=== PATIENT | female | born 1960 | race Caucasian/White ===

== ENCOUNTER 2018-05-25 15:07 | Inpatient (IN) ==
[2018-05-25] MEDS ORDERED: 0.9 % SODIUM CHLORIDE 1,000 ML IV ONE ×3 (15:30→16:10)
--- NOTE | 2018-05-25 15:51 | XRay Report ---
HISTORY: Smoker with cough FINDINGS: There are thin linear opacities in the inferior segment lingula and laterally in the right lower lobe. The involvement in the lingula has improved since 05/21/18 and there has been no change in the right side. This may be a combination of scar and discoid atelectasis. The lungs are otherwise clear, without evidence of pneumonia, mass or emphysema. The heart size, mediastinum and chris are normal. IMPRESSION: Resolving discoid atelectasis in the lingula and stable thin band of scar or discoid atelectasis in the right lower lobe Interpreted and Authenticated by: Crescencio Cazares 05/25/18
[2018-05-25 15:53] LABS: Basophils # (Auto) 0 K/mcL (0.0-0.3); Basophils % (Auto) 0.1 % (0.0-2.0); Eosinophils # (Auto) 0 K/mcL (0.0-0.7); Eosinophils % (Auto) 0.8 % (0.0-7.0); Lymphocytes # (Auto) 0.6 K/mcL (1.5-4.8); Lymphocytes % (Auto) 14.7 % (15.5-49.0); Mean Cell Volume 93.1 fL (80.0-100.0); Mean Corpuscular HGB Conc 33.9 g/dL (31.0-36.0); Monocytes # (Auto) 0.4 K/mcL (0.1-0.9); Monocytes % (Auto) 8.4 % (1.0-12.0); Platelet Count 152 K/mcL (140-440); RBC 4.26 M/mcL (4.00-5.20); Red Cell Distribution Width 12.2 % (11.5-14.5)
[2018-05-25] MEDS ORDERED: ONDANSETRON 4 MG/2 ML VIAL IV ONE ×2 (15:53→16:58)
--- NOTE | 2018-05-25 16:10 | Emergency Department Note ---
Syncope HPI - General Chief Complaint: Syncope Stated Complaint: syncopal episode in Office, nausea/diarrhea Time Seen by Provider: 05/25/18 15:27 Source: patient, EMS Mode of arrival: EMS Limitations: no limitations - History of Present Illness HPI Narrative: 58-year-old nephrology patient of Dr. Steele Came in for syncope in her office. She was markedly orthostatic but claims that she was urinating okay. She is been sick for the last week with a fever diarrhea and a productive cough. Notes some nausea but no vomiting. Normal bowel movement today. She denies any blood in it but she said it may have been black but not tarry. Decreased a ppetite feeling with - Related Data Home Medications Medication Instructions Recorded Confirmed aspirin 81 mg tablet,delayed 81 mg PO QDAY 10/23/16 05/25/18 release calcium acetate 667 mg tablet 667 mg PO TID 10/23/16 05/25/18 cholecalciferol (vitamin D3) 1,000 2,000 unit PO QDAY tab 10/23/16 05/25/18 unit tablet duloxetine 60 mg capsule,delayed 60 mg PO QDAY 10/23/16 05/25/18 release hydrocodone 10 mg-acetaminophen 1 tab PO Q4H tab 10/23/16 05/25/18 325 mg tablet sitagliptin 100 mg tablet 100 mg PO QDAY tab 10/23/16 05/25/18 zolpidem 10 mg tablet 10 mg PO HS 10/23/16 05/25/18 Fish Oil [place] 3-6-9 2 cap PO QD-BID 10/24/16 05/25/18 multivitamin 1 each PO QDAY 10/24/16 05/25/18 Albuterol Sulfate Hfa 2 puff Q4 05/25/18 05/25/18 LORazepam [Ativan] 0.5 - 1 mg PO Q8HP PRN 05/25/18 05/25/18 benzonatate 100 mg capsule 100 mg PO TID 05/25/18 05/25/18 doxycycline hyclate 100 mg capsule 100 mg PO BID 05/25/18 05/25/18 glipizide ER 2.5 mg tablet, 2.5 mg PO QDAY #30 tab 05/25/18 05/25/18 extended release 24 hr rosuvastatin 40 mg tablet 40 mg PO QDAY #30 tab 05/25/18 05/25/18 Allergies Allergy/AdvReac Type Severity Reaction Status Date / Time azithromycin [From Zithromax] Allergy Unknown Unknown Verified 05/25/18 15:11 lodine Allergy Unknown Unknown Uncoded 05/25/18 14:29 Review of Systems All systems ED: reviewed and negative except as stated. Past Medical History - Past Medical History Attestation: Yes: The following information was validated with the patient. [facility] Narrative: Family History (Last Reviewed 05/25/18 @ 16:00 by Merry Ramirez MD) Mother Alcohol abuse Atrial fibrillation Hypertension, essential Heart disease Father Diabetes Arthritis Heart disease Hypertension, essential Medical History (Last Reviewed 05/25/18 @ 16:00 by Merry Ramirez MD) Post-menopausal (Chronic) Renal insufficiency (Chronic) Myocardial infarction, old (Chronic) Knee pain (Chronic) Hypertension, essential, benign (Chronic) Hyperlipidemia (Chronic) Foot pain (Chronic) Diabetes mellitus, type II (Chronic) Depression (Chronic) Bite from dog (Chronic) Past Surgical History (Last Reviewed 05/25/18 @ 16:00 by Merry Ramirez MD) History of left knee replacement (Chronic 11/10/12) History of surgery (Chronic ~02/2013) Medical history: Reports: hyperlipidemia, hypertension Surgical history ED: Reports: (x2), knee replacement - Social History smoking status: Current every day smoker Physical Exam Fatigued ill-appearing female resting. Normocephalic atraumatic. Conjunctive are clear sclerae white and anicteric. No nasal discharge or congestion. O ropharynx is with dry buccal mucosa. Posterior pharynx is clear. Neck is supple without lymphadenopathy or thyromegaly. No carotid bruit. Heart is regular rate rhythm no murmur appreciated. Lungs are clear to auscultation laterally without wheezes rales or rhonchi but she does have a productive cough if she takes a deep breath. Abdomen soft nontender nondistended except for the right upper and lower quadrants which is diffuse and mild. No pedal edema. +2 radial pulse. Alert oriented able to give me reasonable history Limitations: no limitations Course Vital Signs Temperature 97.6 F 05/25/18 15:08 Temperature 97.1 F 05/26/18 04:52 Pulse Rate 78 05/25/18 19:19 Respiratory Rate 18 05/26/18 04:52 Blood Pressure 103/61 05/26/18 04:52 Pulse Oximetry (%) 99 05/26/18 04:52 Syncope - Lab Data Lab results reviewed: Yes I reviewed the patient's lab results. Result diagrams: 05/26/18 03:30 05/26/18 03:30 Lab Results 05/25/18 05/25/18 05/25/18 Range/Units 15:20 15:20 15:20 WBC 4.2 L (4.5-11.0) K/mcL RBC 4.26 (4.00-5.20) M/mcL Hgb 13.5 (12.0-15.0) g/dL Hct 39.7 (36.0-48.0) % POC Hct 41.0 (36.0-48.0) % MCV 93.1 (80.0-100.0) fL MCH 31.6 (26.0-34.0) pg MCHC 33.9 (31.0-36.0) g/dL RDW 12.2 (11.5-14.5) % Plt Count 152 (140-440) K/mcL MPV 9.1 (7.4-10.4) fL Gran % 76.0 (38.0-78.0) % Lymph % (Auto) 14.7 L (15.5-49.0) % [place] % (Auto) 8.4 (1.0-12.0) % Eos % (Auto) 0.8 (0.0-7.0) % Baso % (Auto) 0.1 (0.0-2.0) % Gran # 3.2 (1.8-8.0) K/mcL Lymph # (Auto) 0.6 L (1.5-4.8) K/mcL [place] # (Auto) 0.4 (0.1-0.9) K/mcL Eos # (Auto) 0 (0.0-0.7) K/mcL Baso # (Auto) 0 (0.0-0.3) K/mcL VBG Lactic Acid (0.5-2.0) mmol/L POC Sodium 143 (133-145) mmol/L Sodium 143 (133-145) mmol/L POC Potassium 3.7 (3.3-5.1) mmol/L Potassium 3.8 (3.3-5.1) mmol/L POC Chloride 112 H (96-108) mmol/L Chloride 108 (96-108) mmol/L Carbon Dioxide 17 L (22-30) mmol/L POC Total CO2 17 L (22-30) mmol/L Anion Gap 18.0 H (8-16) POC BUN 88 H (6-20) mg/dl BUN 89 H (6-20) mg/dl Creatinine 7.1 H* (0.6-1.1) mg/dl POC Creatinine 7.7 H* (0.6-1.1) mg/dl GFR Calculation 6 Glucose 132 H (70-105) mg/dL POC Glucose 127 H (70-105) mg/dL Calcium 9.6 (8.6-10.4) mg/dl POC WB Ioniz Calcium 1.17 (1.16-1.32) mmol/L Magnesium (1.6-2.5) mg/dL Total Bilirubin 0.3 (0.0-1.0) mg/dL AST 23 (0-37) U/l ALT 28 (0-40) U/l Alkaline Phosphatase 76 (39-117) U/L NT-Pro-B Natriuret Pep (0-125) pg/ml Total Protein 7.5 (5.9-8.4) gm/dL Albumin 4.1 (3.2-5.2) gm/dL Globulin 3.4 (2.2-3.7) gm/dL Albumin/Globulin Ratio 1.2 (1.0-2.3) Procalcitonin 0.10 (<0.10) ng/mL Urine Color Urine Appearance Urine pH (5.0-9.0) Ur Specific [place] (1.000-1.035) Urine Protein (NEG) mg/dL Urine Glucose (UA) (NEG) mg/dL Urine Ketones (NEG) mg/dL Urine Occult Blood (<0.03) mg/dL Urine Nitrate (NEG) Urine Bilirubin (NEG) mg/dL Urine Urobilinogen (NEG) mg/dL Ur Leukocyte Esterase (NEG) /uL Urine RBC (0-1) /hpf Urine WBC (0-4) /hpf Ur Squamous Epith Cells (0-4) /hpf Amorphous Crystals (0) /hpf Urine Bacteria (0) /hpf Urine Mucus (0) /hpf Ur Culture Indicated? 05/25/18 05/25/18 05/25/18 Range/Units 15:33 15:34 17:38 WBC (4.5-11.0) K/mcL RBC (4.00-5.20) M/mcL Hgb (12.0-15.0) g/dL Hct (36.0-48.0) % POC Hct (36.0-48.0) % MCV (80.0-100.0) fL MCH (26.0-34.0) pg MCHC (31.0-36.0) g/dL RDW (11.5-14.5) % Plt Count (140-440) K/mcL MPV (7.4-10.4) fL Gran % (38.0-78.0) % Lymph % (Auto) (15.5-49.0) % [place] % (Auto) (1.0-12.0) % Eos % (Auto) (0.0-7.0) % Baso % (Auto) (0.0-2.0) % Gran # (1.8-8.0) K/mcL Lymph # (Auto) (1.5-4.8) K/mcL [place] # (Auto) (0.1-0.9) K/mcL Eos # (Auto) (0.0-0.7) K/mcL Baso # (Auto) (0.0-0.3) K/mcL VBG Lactic Acid 1.1 (0.5-2.0) mmol/L POC Sodium (133-145) mmol/L Sodium (133-145) mmol/L POC Potassium (3.3-5.1) mmol/L Potassium (3.3-5.1) mmol/L POC Chloride (96-108) mmol/L Chloride (96-108) mmol/L Carbon Dioxide (22-30) mmol/L POC Total CO2 (22-30) mmol/L Anion Gap (8-16) POC BUN (6-20) mg/dl BUN (6-20) mg/dl Creatinine (0.6-1.1) mg/dl POC Creatinine (0.6-1.1) mg/dl GFR Calculation Glucose (70-105) mg/dL POC Glucose (70-105) mg/dL Calcium (8.6-10.4) mg/dl POC WB Ioniz Calcium (1.16-1.32) mmol/L Magnesium 2.3 (1.6-2.5) mg/dL Total Bilirubin (0.0-1.0) mg/dL AST (0-37) U/l ALT (0-40) U/l Alkaline Phosphatase (39-117) U/L NT-Pro-B Natriuret Pep 783.1 H (0-125) pg/ml Total Protein (5.9-8.4) gm/dL Albumin (3.2-5.2) gm/dL Globulin (2.2-3.7) gm/dL Albumin/Globulin Ratio (1.0-2.3) Procalcitonin (<0.10) ng/mL Urine Color Straw Urine Appearance Clear Urine pH 6.0 (5.0-9.0) Ur Specific [place] 1.011 (1.000-1.035) Urine Protein 100 A (NEG) mg/dL Urine Glucose (UA) Negative (NEG) mg/dL Urine Ketones Neg (NEG) mg/dL Urine Occult Blood 0.2 A (<0.03) mg/dL Urine Nitrate Neg (NEG) Urine Bilirubin Neg (NEG) mg/dL Urine Urobilinogen Neg (NEG) mg/dL Ur Leukocyte Esterase Neg (NEG) /uL Urine RBC 5 H (0-1) /hpf Urine WBC 1 (0-4) /hpf Ur Squamous Epith Cells < 1 (0-4) /hpf Amorphous Crystals Few A (0) /hpf Urine Bacteria 0 (0) /hpf Urine Mucus Few (0) /hpf Ur Culture Indicated? No ABG shows pH 7.24 PCO2 29 PO2 66 - Radiology Data Radiology results reviewed: Yes I reviewed the patient's radiology results. Chest x-ray shows no acute findings - EKG Data EKG attestation: Yes I reviewed and interpreted this EKG. EKG results narrative: EKG shows a Q wave in 2 3 aVF as well as V4 to V6 sinus rhythm with a rate of 69 Disposition Pt seen by ENGINEER/PA only: No Clinical Impression: Metabolic acidosis, Syncope due to orthostatic hypotension Acute kidney failure Qualifiers: Acute renal failure type: unspecified Qualified Code(s): N17.9 - Acute kidney failure, unspecified Summary: Patient was initially brought over to me by Dr. Ramirez and she actually gave me her labs from last week which showed a significant increase in her creatinine. She expressed her concerns about the patient's orthostatics which we again confirmed show significant decreased blood pressure with standing. Patient appears very ill, in acute kidney failure Laboratory testing acute kidney failure with metabolic acidosis, symptomatic with syncopal episode. She will require hospital admission Of incidental note is that she quit smoking 1 week ago I discussed the case with Dr. Oliva the hospitalist as well as Dr. Ramirez the form builder. Dr. Oliva will admit the patient for further care and evaluation in the hospital and Dr. Ramirez will consult. Disposition: Xfer As Inpt ([facility]) Condition: Fair
[2018-05-25 16:16] LABS: proBNP 783.1 pg/ml (0-125)
[2018-05-25] MEDS ORDERED: SODIUM BICARBONATE 50 MEQ/50 ML VIAL IV ONE (16:17)
[2018-05-25 16:21] LABS: ALT/SGPT 28 U/l (0-40); Albumin 4.1 gm/dL (3.2-5.2); Albumin/Globulin Ratio 1.2 (1.0-2.3); Alkaline Phosphatase 76 U/L (39-117); Blood Urea Nitrogen 89 mg/dl (6-20)
--- NOTE | 2018-05-25 17:02 | Internal Med History&Physical ---
Medical - H&P: [facility] Patient information: Note initiated : 05/25/18 at 5:01 pm Service Date, if different from initiated Date: [] Patient: Verito Alcantar a 58 y/o F admitted on for syncopal episode in Office, nausea/diarrhea. Chief Complaint: [] Chief complaint: weakness, syncope History of present illness: Ms. Alcantar is a 58 year old F with a history of chronic kidney disease who had a syncopal episode at nephrology clinic today and was subsequently referred to the ER. Patient over the last 10 days has been experiencing profuse diarrhea along with weakness. She denies associated abdominal pain fever, mucus or blood. However over the last 1 week she has lost over 10 pounds. She feels extremely dehydrated. She also developed upper respiratory symptoms around 5 days ago for which she was evaluated at PCP office and was prescribed doxycycline for 10 days. She endorses to extreme fatigue, malaise and weakness along with nausea that has progressed to the point she is unable to function prompting her to follow-up with nephrology clinic where she experienced syncopal episode. Notably patient had a history of chronic kidney disease with a recent creatinine of over 5 how ever repeat creatinine today in the ER was over 7 with a BUN 89. Nephrology was consulted and patient will undergo hemodialysis after HD catheter placement in 24 hours. Hospitalist service was consulted for admission At the time of evaluation patient is accompanied with her daughter and . She endorses to history as above. She denies NSAID use, changes in medication. She denies sick contacts. Review of systems 10 point review of system was performed and is negative except as discussed above Medical - H&P: [facility] Medical history: Post-menopausal (Chronic) Renal insufficiency (Chronic) Myocardial infarction, old (Chronic) age 41 Knee pain (Chronic) chronic, right Hypertension, essential, benign (Chronic) Hyperlipidemia (Chronic) Foot pain (Chronic) left Diabetes mellitus, type II (Chronic) Depression (Chronic) Bite from dog (Chronic) Surgical History History of left knee replacement (Chronic 11/10/12) History of surgery (Chronic ~02/2013) Stent placement Family History Mother Alcohol abuse Atrial fibrillation Hypertension, essential Heart disease Father , age 82 Diabetes Arthritis Heart disease Hypertension, essential Social History marital status: 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 smoking status: Current every day smoker 2 pack a day alcohol intake frequency: does not drink Medical - H&P: Meds Home Medications Medication Instructions Recorded Confirmed Type aspirin 81 mg tablet,delayed 81 mg PO QDAY 10/23/16 05/25/18 History release calcium acetate 667 mg tablet 667 mg PO TID 10/23/16 05/25/18 History cholecalciferol (vitamin D3) 1,000 2,000 unit PO QDAY tab 10/23/16 05/25/18 History unit tablet duloxetine 60 mg capsule,delayed 60 mg PO QDAY 10/23/16 05/25/18 History release hydrocodone 10 mg-acetaminophen 1 tab PO Q4H tab 10/23/16 05/25/18 History 325 mg tablet sitagliptin 100 mg tablet 100 mg PO QDAY tab 10/23/16 05/25/18 History zolpidem 10 mg tablet 10 mg PO HS 10/23/16 05/25/18 History Fish Oil [place] 3-6-9 2 cap PO QD-BID 10/24/16 05/25/18 History multivitamin 1 each PO QDAY 10/24/16 05/25/18 History Albuterol Sulfate Hfa 2 puff Q4 05/25/18 05/25/18 History LORazepam [Ativan] 0.5 - 1 mg PO Q8HP PRN 05/25/18 05/25/18 History benzonatate 100 mg capsule 100 mg PO TID 05/25/18 05/25/18 History doxycycline hyclate 100 mg capsule 100 mg PO BID 05/25/18 05/25/18 History glipizide ER 2.5 mg tablet, 2.5 mg PO QDAY #30 tab 05/25/18 05/25/18 History extended release 24 hr rosuvastatin 40 mg tablet 40 mg PO QDAY #30 tab 05/25/18 05/25/18 History Allergies Allergy/AdvReac Type Severity Reaction Status Date / Time azithromycin [From Zithromax] Allergy Unknown Unknown Verified 05/25/18 15:11 lodine Allergy Unknown Unknown Uncoded 05/25/18 14:29 Medical - H&P: Exam - Constitutional Vitals: Temp Pulse Resp BP Pulse Ox 97.6 F 72 13 125/78 99 05/25/18 15:08 05/25/18 16:41 05/25/18 16:41 05/25/18 16:41 05/25/18 16:41 General appearance: no acute distress Exam: Anxious and fatigued Eye movement symmetrical Oral cavity dry Head normocephalic Neck no lymphadenopathy S1 and S2 irregular rhythm Diminished breath sounds bases with symmetrical breath sounds Abdomen soft nontender Lower extremity no cyanosis clubbing or joint swelling or erythema Skin no suspicious lesion Psych anxious but alert and cooperative without hallucination Neuro nonfocal Medical - H&P: Reslt - Labs CBC & Chem 7: 05/26/18 03:30 05/26/18 03:30 Labs: Short CBC 05/25/18 Range/Units 15:20 WBC 4.2 L (4.5-11.0) K/mcL Hgb 13.5 (12.0-15.0) g/dL Hct 39.7 (36.0-48.0) % Plt Count 152 (140-440) K/mcL BMP 05/25/18 15:20 Sodium 143 Potassium 3.8 Chloride 108 Carbon Dioxide 17 L BUN 89 H Creatinine 7.1 H* Glucose 132 H Calcium 9.6 Liver Function 05/25/18 Range/Units 15:20 Total Bilirubin 0.3 (0.0-1.0) mg/dL AST 23 (0-37) U/l ALT 28 (0-40) U/l Alkaline Phosphatase 76 (39-117) U/L Albumin 4.1 (3.2-5.2) gm/dL Medical - H&P: A/P (1) ESRD (end stage renal disease) Current visit: Yes Status: Acute * End-stage renal disease- within managed per nephrology. Patient undergoing hemodialysis * Diarrhea with volume depletion-crystalloids * Syncope likely secondary to volume depletion, start telemetry monitoring to rule out arrhythmia, echocardiogram to rule out cardiac valvular etiology. * History of hypertension-medications will be as per nephrology * DM type II continue basal prandial insulin, hold glipizide/sitagliptin. Start CCD * Hyperlipidemia on statin * Full code * Prophylaxis heparin Plan * Nephrology consult * Crystalloids * Telemetry monitoring/echocardiogram * Inpatient admission light of renal failure requiring hemodialysis
[2018-05-25 18:06] LABS: Appearance,Urine CLEAR; Bacteria,Urine 0 /hpf (0); Bilirubin,Urine NEG (NEG); Color,Urine STRAW; Glucose,Urine (UA) NEGATIVE (NEG); Leukocyte Esterase,Urine NEG /uL (NEG); Mucus,Urine FEW /hpf (0); Protein,Urine 100 mg/dL (NEG); Specific Gravity,Urine 1.011 (1.000-1.035); Urine Amorphous Crystals FEW /hpf (0); Urine Blood 0.2 mg/dL (<0.03); Urine RBC 5 /hpf (0-1); Urine Squamous Epithelial Cell < 1 /hpf (0-4); Urine WBC 1 /hpf (0-4); Urobilinogen,Urine NEG (NEG)
[2018-05-25] MEDS ORDERED: ACETAMINOPHEN 325 MG TABLET PO PRN (19:10)
--- NOTE | 2018-05-25 19:53 | Nephrology Consult Note ---
History of Present Illness - Reason for Consult Patient information: Note initiated : 05/25/18 at 7:50 pm Service Date, if different from initiated Date: [] Patient: Verito Alcantar a 58 y/o F admitted on 05/25/[address] for [address] episode [address] Wiley, nausea/diarrhea. Chief Complaint: [] - History of Present Illness Ms Alcantar is a 58 y/o pleasant white female with PMH of HTN, DM type 2, CAD s/p angioplasty, CKD, dyslipidemia and other medical issues who is here for follow up she has h/o proteinuric CKD in the setting of HTN, DM type 2 and chronic NSAIDS use lst to follow up almost for a year requested to come back by PCP given current labs showing s.creatinine of 5.2, egfr of 8.0ml/min per CKD EPI equation patient could nto provide much history while in the clinic she was sick/lightheaded, nauseous we tried to take her to ER but she had pre syncopal episode and fell down on floor, denied any trauma/injury/pain, EMS called and took her to ER Patient states she started having diarrhea and vomiting 10 days ago,she also had acute bronchitis then, she saw her pcp on 05/21 and was prescribed doxycycline, she states her diarrhea resolved 5 days ago but she has had persistent nausea, poor appetite and has been feeling lightheaded today, she did not go to work today She denies taking any other meds she denies LE edema, SOB, CP she denies any urinary symptoms Patient was started on IVF in the ER, her work up showed further worsening of her renal function with s.creatinine upto 7.7 and BUN of 89, she was acidotic as well with ph of 7.26 on ABG Review of Systems All systems PM: reviewed and no additional remarkable complaints except as stated ( IN hpi) Past History Past medical history: CKD stage V, s.creatinine was 3.6-3.8 a year ago secondary hyperparathyroidism HTN DM type 2 CAD s/p stent placement dyslipidemia poor compliance to follow up h/o chronic pain and has used NSAIDS for this in the past Past surgical history: h/o stent placement h/o left knee replacement Past family history: no family history of renal disease Alcohol abuse Mother Atrial fibrillation Mother Hypertension, essential Mother Heart disease Mother Father Diabetes Father Arthritis Father Heart disease Father Hypertension, essential Father Past social history: works at [employer] smokes everyday, last smoke a week ago no h/o alcohol abuse Medications and Allergies Home Medications Medication Instructions Recorded Confirmed Type aspirin 81 mg tablet,delayed 81 mg PO QDAY 10/23/16 05/25/18 History release calcium acetate 667 mg tablet 667 mg PO TID 10/23/16 05/25/18 History cholecalciferol (vitamin D3) 1,000 1,000 unit PO QDAY tab 10/23/16 05/25/18 History unit tablet duloxetine 60 mg capsule,delayed 60 mg PO QDAY 10/23/16 05/25/18 History release hydrocodone 10 mg-acetaminophen 1 tab PO Q4H tab 10/23/16 05/25/18 History 325 mg tablet sitagliptin 100 mg tablet 50 mg PO QDAY tab 10/23/16 05/25/18 History zolpidem 10 mg tablet 10 mg PO HS 10/23/16 05/25/18 History Fish Oil [place] 3-6-9 2 cap PO QDAY 10/24/16 05/25/18 History multivitamin 1 each PO QDAY 10/24/16 05/25/18 History amlodipine 5 mg tablet 5 mg PO QDAY #30 tab 01/13/17 05/25/18 Rx benzonatate 100 mg capsule 100 mg PO TID 05/25/18 05/25/18 History doxycycline hyclate 100 mg capsule 100 mg PO BID 05/25/18 05/25/18 History glipizide ER 2.5 mg tablet, 2.5 mg PO QDAY #30 tab 05/25/18 05/25/18 History extended release 24 hr rosuvastatin 40 mg tablet 40 mg PO QDAY #30 tab 05/25/18 05/25/18 History Allergies Allergy/AdvReac Type Severity Reaction Status Date / Time azithromycin [From Zithromax] Allergy Unknown Unknown Verified 05/25/18 15:11 lodine Allergy Unknown Unknown Uncoded 05/25/18 14:29 Exam - Vital Signs Vital signs: Temp Pulse Resp BP Pulse Ox 97.6 F 78 18 105/75 97 05/25/18 19:19 05/25/18 19:19 05/25/18 19:19 05/25/18 19:19 05/25/18 19:19 - General Appearance General appearance: appears started age, chronically ill, frail EENT: mucous membranes moist Neck: no JVD Respiratory: wheezing (mainly on right side ) Cardiology: no rub, no edema, normal S1, normal S2 Gastrointestinal: no tenderness, no guarding Neurologic: alert and oriented x3 Musculoskeletal: no erythema, no cyanosis Psychiatric: mood/affect appropriate Results - Lab Results 05/25/18 15:20 05/25/18 15:20 Most recent lab results Calcium 9.6 mg/dl (8.6-10.4) 05/25/18 15:20 Magnesium 2.3 mg/dL (1.6-2.5) 05/25/18 15:34 Assessment and Plan - Narrative A/P Narrative: Patient with acute on chronic renal failure vs progressive decline in renal function, s.creatinine a year ago was 3.6-3.8, on 05/21/18 was 5.2 and today is 7.1 she has persistent nausea and poor appetite, she has lost 20 lbs since last seen she has persistent metabolic acidosis no hyperkalemia no anemia no s/o fluid excess will continue with IV gentle hydration will start on oral sodium bicarb, she received an amp of bicarb in the ER will hold amlodipine no emergent need for dialysis ,if symptoms fail to resolve however she will need to initiate HD, discussed with the patient and she is willing to initiate HD if needed will have IR place TCC, discussed with Dr Mckeon please dose meds to egfr avoid nephrotoxic medications will follow along
[2018-05-25] MEDS: PROMETHAZINE 25 MG/ML VIAL IV PRN (20:34)
[2018-05-25] MEDS: LACTATED RINGERS 1,000 ML IV SCH (20:34)
[2018-05-25] MEDS: ONDANSETRON 4 MG/2 ML VIAL IV PRN (22:37)
[2018-05-25] MEDS: SODIUM BICARBONATE 650 MG TABLET PO SCH (22:38)
[2018-05-25] MEDS: HEPARIN 5,000 UNIT/ML VIAL SQ SCH (22:38)
[2018-05-25] MEDS: DOCUSATE SODIUM 100 MG CAPSULE PO SCH (22:39)
[2018-05-25] MEDS: NICOTINE 21 MG PATCH TOPICAL SCH (22:39)
[2018-05-25] MEDS: SENNOSIDES/DOCUSATE SODIUM 1 TAB TABLET PO SCH (22:40)
[2018-05-25] MEDS: 0.9 % SODIUM CHLORIDE 10 ML SYRINGE IV SCH (22:40)
[2018-05-26] MEDS ORDERED: ZOLPIDEM 5 MG TABLET ONE (00:14)
[2018-05-26] MEDS: ZOLPIDEM 5 MG TABLET PO PRN ×2 (00:17→21:32)
[2018-05-26] MEDS: PROMETHAZINE 25 MG/ML VIAL IV PRN ×2 (01:56→09:11)
[2018-05-26 06:39] LABS: Mean Cell Volume 95.3 fL (80.0-100.0); Mean Corpuscular HGB Conc 33.5 g/dL (31.0-36.0); Platelet Count 142 K/mcL (140-440); RBC 3.74 M/mcL (4.00-5.20); Red Cell Distribution Width 12.5 % (11.5-14.5)
[2018-05-26 07:25] LABS: ALT/SGPT 24 U/l (0-40); Albumin 3.5 gm/dL (3.2-5.2); Albumin/Globulin Ratio 1.3 (1.0-2.3); Alkaline Phosphatase 62 U/L (39-117); Bilirubin,Direct < 0.2 mg/dL (0.0-0.3); Blood Urea Nitrogen 80 mg/dl (6-20); Gamma Glutamyl Transpeptidase 14 U/L (5-36); Uric Acid 8.1 mg/dL (2.5-8.0)
[2018-05-26] MEDS: 0.9 % SODIUM CHLORIDE 10 ML SYRINGE IV SCH ×3 (07:32→21:17)
[2018-05-26] MEDS: MULTIVIT,THER IRON,CA,FA & MIN 1 TABLET PO SCH (08:31)
[2018-05-26] MEDS: DOCUSATE SODIUM 100 MG CAPSULE PO SCH ×2 (08:31→21:33)
[2018-05-26] MEDS: SODIUM BICARBONATE 650 MG TABLET PO SCH (08:31)
[2018-05-26] MEDS: HEPARIN 5,000 UNIT/ML VIAL SQ SCH ×2 (08:32→21:18)
[2018-05-26] MEDS: LACTATED RINGERS 1,000 ML IV SCH (09:07)
[2018-05-26] MEDS: NICOTINE 21 MG PATCH TOPICAL SCH (09:10)
[2018-05-26 09:15] LABS: Eosinophils % (Manual) 1 % (0-7); Lymphocytes % 29 % (15-49); Monocytes % (Manual) 10 % (1-12); Platelet Estimate DECREASED (NORMAL); RBC Morphology NORMAL (NORMAL); Segmented Neutrophils % 60 % (38-78)
[2018-05-26] MEDS ORDERED: DEXTROSE 31 GM ORAL.SUSP PO PRN (09:44)
[2018-05-26] MEDS ORDERED: DEXTROSE 50% 50 ML VIAL IV PRN (09:44)
--- NOTE | 2018-05-26 09:44 | Internal Med Progress Note ---
Medical - PN: Subj Patient information: Note initiated : 05/26/18 at 9:42 am Service Date, if different from initiated Date: [] Patient: Verito Alcantar a 58 y/o F admitted on 05/25/18 for syncopal episode in Dr. Wiley, nausea/diarrhea. Chief Complaint: [] Interval history: Ms. Alcantar is a 58 year old F with a history of chronic kidney disease who had a syncopal episode at nephrology clinic today and was subsequently referred to the ER. Patient over the last 10 days has been experiencing profuse diarrhea along with weakness. She denies associated abdominal pain fever, mucus or blood. However over the last 1 week she has lost over 10 pounds. She feels extremely dehydrated. She also developed upper respiratory symptoms around 5 days ago for which she was evaluated at PCP office and was prescribed doxycycline for 10 days. She endorses to extreme fatigue, malaise and weakness along with nausea that has progressed to the point she is unable to function prompting her to follow-up with nephrology clinic where she experienced syncopal episode. Notably patient had a history of chronic kidney disease with a recent creatinine of over 5 however repeat creatinine today in the ER was over 7 with a BUN 89. Nephrology was consulted and patient will undergo hemodialysis after HD catheter placement in 24 hours. Hospitalist service was consulted for admission At the time of evaluation patient is accompanied with her daughter and . She endorses to history as above. She denies NSAID use, changes in medication. She denies sick contacts. 3/-patient doing well. Creatinine down from 7.1-6.5. Hemodialysis catheter placement today at [place]. Nephrology on board. No other concerns per nursing staff. No overnight events except for persistent nausea. - Constitutional Vitals: Vital Signs Temp Pulse Resp BP Pulse Ox 97.1 F 78 18 103/61 99 05/26/18 04:52 05/25/18 19:19 05/26/18 04:52 05/26/18 04:52 05/26/18 04:52 Period Temp Pulse Resp BP Sys/Morales Pulse Ox Last 24 Hr 97.1 F-98.1 F 68-78 13-26 94-131/57-87 94-100 Intake and Output 05/25/18 05/26/18 05/26/18 21:59 05:59 13:59 Intake Total 1885 1000 Output Total 400 1000 Balance 1485 -1000 1000 Weight 160 lb 14.4 oz Intake & Output: Intake & Output 05/25/18 05/26/18 05/26/18 21:59 05:59 13:59 Intake Total 1885 1000 Output Total 400 1000 Balance 1485 -1000 1000 Weight 160 lb 14.4 oz Intake: IV 1165 1000 Sodium Chloride 0.9% 1,000 ml @ 1165 Wide Open IV BOLUS ONE Rx#: [id number] Lactated Ringers 1,000 ml @ 75 1000 mls/hr IV .[id number] SUNDAY Rx#: [id number] Oral 720 Output: Void Amount 400 1000 Other: Meal Dinner Percent of Meal Consumed 25% Feeding Ability Independent # Voids 1 General appearance: cooperative, no acute distress Exam: Alert oriented nonlabored breathing No anxiety Nondistended abdomen Medical - PN: Obj Da - Labs CBC & Chem 7: 05/26/18 03:30 05/26/18 03:30 Labs: Abnormal Lab Results 05/26/18 05/26/18 05/25/18 03:30 03:30 17:38 WBC 3.3 L RBC 3.74 L Hgb 11.9 L Hct 35.6 L Lymph % (Auto) Lymph # (Auto) POC Chloride Chloride 109 H Carbon Dioxide 20 L POC Total CO2 Anion Gap POC BUN BUN 80 H Creatinine 6.5 H* POC Creatinine Glucose POC Glucose Uric Acid 8.1 H Calcium 8.5 L Phosphorus 4.8 H NT-Pro-B Natriuret Pep Triglycerides 381 H Urine Protein 100 A Urine Occult Blood 0.2 A Urine RBC 5 H Amorphous Crystals Few A 05/25/18 05/25/18 05/25/18 15:34 15:20 15:20 WBC 4.2 L RBC Hgb Hct Lymph % (Auto) 14.7 L Lymph # (Auto) 0.6 L POC Chloride 112 H Chloride Carbon Dioxide 17 L POC Total CO2 17 L Anion Gap 18.0 H POC BUN 88 H BUN 89 H Creatinine 7.1 H* POC Creatinine 7.7 H* Glucose 132 H POC Glucose 127 H Uric Acid Calcium Phosphorus NT-Pro-B Natriuret Pep 783.1 H Triglycerides Urine Protein Urine Occult Blood Urine RBC Amorphous Crystals Meds: Medications Acetaminophen (Tylenol) 650 mg PO Q4-6HP PRN PRN Reason: PAIN/FEVER > 101 Docusate Sodium (Colace) 100 mg PO BID [facility] Last Admin: 05/26/18 08:31 Dose: Not Given Documented by: Heparin Sodium (Porcine) (Heparin) 5,000 unit SQ Q12 [facility] Last Admin: 05/26/18 08:32 Dose: Not Given Documented by: Acetaminophen (Ofirmev) 1,000 mg in 100 mls @ 200 mls/hr IV Q6HP PRN PRN Reason: PAIN/FEVER > 101 Lactated Ringer's (Lactated Ringers) 1,000 mls @ 75 mls/hr IV .[id number] [facility] Last Admin: 05/26/18 09:07 Dose: 75 mls/hr Documented by: Iron Carb/Multivit/[place]/Folic Acid (Multivitamin W/Minerals) 1 tab PO DAILY [facility] Last Admin: 05/26/18 08:31 Dose: Not Given Documented by: Nicotine (Nicoderm) 21 mg TOPICAL DAILY@1000 [facility] Last Admin: 05/26/18 09:10 Dose: 21 mg Documented by: Ondansetron HCl (Zofran) 4 mg IV Q4-6HP PRN PRN Reason: Nausea And Vomiting Last Admin: 05/25/18 22:37 Dose: 4 mg Documented by: Pneumococcal Polyvalent Vaccine (Pneumovax 23) 0.5 ml IM .ONCE ONE Stop: 05/27/18 10:01 Promethazine HCl (Phenergan) 6.25 mg IV Q4HP PRN PRN Reason: Nausea Last Admin: 05/26/18 09:11 Dose: 6.25 mg Documented by: Senna/Docusate Sodium (Senna Plus Tablet) 1 tab PO HS [facility] Last Admin: 05/25/18 22:40 Dose: Not Given Documented by: Sodium Bicarbonate (Sodium Bicarbonate) 1,300 mg PO BID [facility] Last Admin: 05/26/18 08:31 Dose: Not Given Documented by: Sodium Chloride (Saline Flush) 10 ml IV Q8 [facility] Last Admin: 05/26/18 07:32 Dose: Not Given Documented by: Zolpidem Tartrate (Ambien) 5 mg PO HSP PRN PRN Reason: Insomnia Last Admin: 05/26/18 00:17 Dose: 5 mg Documented by: Medical - PN: A/P - Time Spent With Patient Total time spent is greater than 50% in coordination of care (as documented) at patient's floor/unit and/or counseling patient: 15 - 24 minutes (1) ESRD (end stage renal disease) Status: Acute Assessment and plan: * End-stage renal disease- within managed per nephrology. Patient undergoing hemodialysis * Diarrhea with volume depletion-crystalloids * Syncope likely secondary to volume depletion, start telemetry monitoring to rule out arrhythmia, echocardiogram to rule out cardiac valvular etiology. * History of hypertension-medications will be as per nephrology * DM type II continue basal prandial insulin, hold glipizide/sitagliptin. Start CCD * Hyperlipidemia on statin * Full code * Prophylaxis heparin Plan * Hemodialysis catheter placement today * Await echocardiogram * Continue fluid electrolyte management per nephrology * pre-existing medical condition management Current Visit: Yes Medical - PN: Qual - VTE Deep Vein Thrombosis/Pulmonary Embolism Present on Admission: No
[2018-05-26] MEDS: INSULIN LISPRO 1 UNIT/0.01 ML UNIT SQ SCH ×4 (09:48→20:14)
--- NOTE | 2018-05-26 16:26 | Nephrology Progress Note ---
Subjective Patient information: Note initiated : 05/26/18 at 4:24 pm Service Date, if different from initiated Date: [] Patient: Verito Alcantar 58 y/o F admitted on 05/25/18 for syncopal episode in Dr. Wiley, nausea/diarrhea. Chief Complaint: [] Principal diagnosis: uremia Interval history: Patient has persistent nausea and is on phenergan for this She his non oliguric, no major improvement in renal function despite aiv HYDRATION No SOB, CP no edema denies dizziness, states walked this am no other concerns Patient has h/o CKD stage V, last s.creatinine a year ago 3.6-4.0, patient then lost to follow up, did not see PCP either Pertinent ROS: ABOVE Objective - Vital Signs Vital signs: Vital Signs Temp Pulse Pulse Resp BP BP BP 05/26/18 16:00 98.1 F 18 86/51 05/26/18 15:15 97.0 F 18 111/67 05/26/18 11:00 97.0 F 66 18 104/52 05/26/18 08:00 97.2 F 66 18 98/61 05/26/18 04:52 97.1 F 18 103/61 05/25/18 23:45 97.1 F 18 122/67 05/25/18 19:19 97.6 F 78 18 105/75 05/25/18 19:03 98.1 F 18 114/61 05/25/18 18:41 78 18 105/75 05/25/18 18:21 73 16 118/72 05/25/18 18:01 71 20 110/57 05/25/18 17:43 68 18 116/75 05/25/18 17:21 71 17 105/86 05/25/18 17:01 69 18 112/63 05/25/18 16:41 72 13 125/78 05/25/18 16:33 69 19 118/72 Pulse Ox 05/26/18 16:00 93 05/26/18 15:15 92 05/26/18 11:00 95 05/26/18 08:00 100 05/26/18 04:52 99 05/25/18 23:45 95 05/25/18 19:19 97 05/25/18 19:03 97 05/25/18 18:41 97 05/25/18 18:21 97 05/25/18 18:01 99 05/25/18 17:43 94 05/25/18 17:21 95 05/25/18 17:01 100 05/25/18 16:41 99 05/25/18 16:33 99 Intake and Output 05/26/18 05/26/18 05/26/18 05:59 13:59 21:59 Intake Total 1148 0 Output Total 1000 1000 Balance -1000 148 0 Intake: IV 1148 0 Lactated Ringers 1,000 ml @ 75 1148 0 mls/hr IV .[id number] SUNDAY Rx#: [id number] Output: Void Amount 1000 1000 Other: Urine Appearance Clear Urine Color Bright Yellow Urine Odor Normal Weight 160 lb 14.4 oz Patient Weight 05/27/18 05:59 Weight 160 lb 14.4 oz Intake & Output: Intake & Output 05/26/18 05/26/18 05/26/18 05:59 13:59 21:59 Intake Total 1148 0 Output Total 1000 1000 Balance -1000 148 0 Weight 160 lb 14.4 oz Intake: IV 1148 0 Lactated Ringers 1,000 ml @ 75 1148 0 mls/hr IV .[id number] SUNDAY Rx#: [id number] Output: Void Amount 1000 1000 Other: Urine Appearance Clear Urine Color Bright Yellow Urine Odor Normal - General Appearance General appearance: appears started age, chronically ill, frail EENT: mucous membranes moist Neck: no JVD Respiratory: wheezing Cardiology: no rub, no edema, normal S1, normal S2 Gastrointestinal: no tenderness, no guarding Integumentary: warm and dry Neurologic: alert and oriented x3 Musculoskeletal: no erythema, no clubbing Psychiatric: mood/affect appropriate - Lab 05/26/18 03:30 05/26/18 03:30 Most recent lab results Calcium 8.5 mg/dl (8.6-10.4) L 05/26/18 03:30 Phosphorus 4.8 mg/dL (2.7-4.5) H 05/26/18 03:30 Magnesium 2.1 mg/dL (1.6-2.5) 05/26/18 03:30 Assessment and Plan (1) Acute on chronic renal failure Status: Acute (2) Metabolic acidosis Status: Acute (3) Secondary hyperparathyroidism (of renal origin) Status: Acute - Narrative A/P Narrative: Patient with acute on chronic renal failure vs progressive decline in renal function, s.creatinine a year ago was 3.6-4.0 a year ago, on 05/21/18 was 5.2 and now 7.1-6.5, egfr 6 unchanged despite IV hydration she has persistent nausea and poor appetite, she has lost 20 lbs since last seen she has persistent metabolic acidosis no hyperkalemia mild anemia albumin down to 3.5 she does have flapping tremors no s/o fluid excess will stop IVF, she is able to tolerate po will hold sodium bicarbonate will initiate dialysis, patient understands that she was getting closer to dialysis even a year ago, she has h/o very poor compliance with follow up and she will be at risk of sudden in case her renal function fails to improve significantly HD today for 2 hrs using revaclear 300 dialyser, 3K/2.5CA DIALYSATE, no UF removal and qb 200ml/min please dose meds to egfr copd/ACUTE BRONCHITIS: consider starting bronchodilators given persistent wheezing HTN: will hold off on amlodipine for now DM type 2: if januvia is resumed will need to be dosed per dialysis
[2018-05-26] MEDS: SEVELAMER 800 MG TABLET PO SCH (17:21)
[2018-05-26] MEDS: ACETAMINOPHEN 1,000 MG/100 ML BOTTLE IV PRN (19:54)
[2018-05-26] MEDS ORDERED: fentaNYL 100 MCG/2 ML VIAL IV ONE (21:11)
[2018-05-26] MEDS: fentaNYL 100 MCG/2 ML VIAL IV PRN (21:18)
[2018-05-26] MEDS: SENNOSIDES/DOCUSATE SODIUM 1 TAB TABLET PO SCH (21:33)
[2018-05-27] MEDS: ACETAMINOPHEN 1,000 MG/100 ML BOTTLE IV PRN ×2 (05:46→16:00)
[2018-05-27] MEDS: 0.9 % SODIUM CHLORIDE 10 ML SYRINGE IV SCH ×3 (05:47→21:56)
[2018-05-27 07:04] LABS: Mean Cell Volume 95.7 fL (80.0-100.0); Mean Corpuscular HGB Conc 33.5 g/dL (31.0-36.0); Platelet Count 157 K/mcL (140-440); RBC 3.87 M/mcL (4.00-5.20); Red Cell Distribution Width 12.9 % (11.5-14.5)
[2018-05-27 07:58] LABS: ALT/SGPT 23 U/l (0-40); Albumin 3.5 gm/dL (3.2-5.2); Albumin/Globulin Ratio 1.2 (1.0-2.3); Alkaline Phosphatase 72 U/L (39-117); Bilirubin,Direct < 0.2 mg/dL (0.0-0.3); Blood Urea Nitrogen 50 mg/dl (6-20); Gamma Glutamyl Transpeptidase 16 U/L (5-36); Uric Acid 5.3 mg/dL (2.5-8.0)
[2018-05-27] MEDS: INSULIN LISPRO 1 UNIT/0.01 ML UNIT SQ SCH ×4 (08:00→20:16)
[2018-05-27] MEDS: SEVELAMER 800 MG TABLET PO SCH ×3 (08:12→17:13)
--- NOTE | 2018-05-27 08:19 | Internal Med Progress Note ---
Medical - PN: Subj Patient information: Note initiated : 05/27/18 at 8:14 am Service Date, if different from initiated Date: [] Patient: Verito Alcantar a 58 y/o F admitted on 05/25/18 for syncopal episode in Dr. Wiley, nausea/diarrhea. Chief Complaint: [] Interval history: Ms. Alcantar is a 58 year old F with a history of chronic kidney disease who had a syncopal episode at nephrology clinic today and was subsequently referred to the ER. Patient over the last 10 days has been experiencing profuse diarrhea along with weakness. She denies associated abdominal pain fever, mucus or blood. However over the last 1 week she has lost over 10 pounds. She feels extremely dehydrated. She also developed upper respiratory symptoms around 5 days ago for which she was evaluated at PCP office and was prescribed doxycycline for 10 days. She endorses to extreme fatigue, malaise and weakness along with nausea that has progressed to the point she is unable to function prompting her to follow-up with nephrology clinic where she experienced syncopal episode. Notably patient had a history of chronic kidney disease with a recent creatinine of over 5 however repeat creatinine today in the ER was over 7 with a BUN 89. Nephrology was consulted and patient will undergo hemodialysis after HD catheter placement in 24 hours. Hospitalist service was consulted for admission At the time of evaluation patient is accompanied with her daughter and . She endorses to history as above. She denies NSAID use, changes in medication. She denies sick contacts. 3/-patient doing well. Creatinine down from 7.1-6.5. Hemodialysis catheter placement today at [place]. Nephrology on board. No other concerns per nursing staff. No overnight events except for persistent nausea. 3/6- ongoing hemodialysis. Patient clinically improving however persistent dirrhea. Doing well this morning. On bronchodilators. Discharge planning per nephrology. No overnight fever chills or telemetry events - Constitutional Vitals: Vital Signs Temp Pulse Resp BP Pulse Ox 98.4 F 81 18 92/54 94 05/27/18 08:00 05/27/18 08:00 05/27/18 08:00 05/27/18 08:00 05/27/18 08:00 Period Temp Pulse Resp BP Sys/Morales Pulse Ox Last 24 Hr 96.9 F-99.1 F 65-81 16-20 86-124/51-80 92-99 Intake and Output 05/26/18 05/27/18 05/27/18 21:59 05:59 13:59 Intake Total 265 240 380 Output Total 1400 525 Balance -1135 240 -145 Weight 160 lb Intake & Output: Intake & Output 05/26/18 05/27/18 05/27/18 21:59 05:59 13:59 Intake Total 265 240 380 Output Total 1400 525 Balance -1135 240 -145 Weight 160 lb Intake: IV 265 100 Lactated Ringers 1,000 ml @ 75 165 mls/hr IV .[id number] SUNDAY Rx#: [id number] Oral 240 280 Output: Void Amount 1400 525 Hemodialysis UF 0 Other: Meal Dinner Percent of Meal Consumed 100% Feeding Ability Independent Urine Appearance Cloudy Urine Color Straw Urine Odor Normal Stool Consistency Liquid Watery # Bowel Movements 1 General appearance: no acute distress Exam: Resting comfortably Improved nausea Improving anxiety Diminished breath sounds, wheezing noted Medical - PN: Obj Da - Labs CBC & Chem 7: 05/29/18 05:00 05/29/18 05:00 Labs: Abnormal Lab Results 05/27/18 05/27/18 05/26/18 03:52 03:52 03:30 WBC 4.1 L RBC 3.87 L Hgb Hct Lymph % (Auto) Lymph # (Auto) Potassium 3.1 L POC Chloride Chloride 109 H Carbon Dioxide 20 L POC Total CO2 Anion Gap 18.0 H POC BUN BUN 50 H 80 H Creatinine 5.5 H* 6.5 H* POC Creatinine Glucose 136 H POC Glucose Uric Acid 8.1 H Calcium 8.0 L 8.5 L Phosphorus 5.2 H 4.8 H Lactate Dehydrogenase 278 H NT-Pro-B Natriuret Pep Triglycerides 392 H 381 H Urine Protein Urine Occult Blood Urine RBC Amorphous Crystals 05/26/18 05/25/18 05/25/18 03:30 17:38 15:34 WBC 3.3 L RBC 3.74 L Hgb 11.9 L Hct 35.6 L Lymph % (Auto) Lymph # (Auto) Potassium POC Chloride Chloride Carbon Dioxide POC Total CO2 Anion Gap POC BUN BUN Creatinine POC Creatinine Glucose POC Glucose Uric Acid Calcium Phosphorus Lactate Dehydrogenase NT-Pro-B Natriuret Pep 783.1 H Triglycerides Urine Protein 100 A Urine Occult Blood 0.2 A Urine RBC 5 H Amorphous Crystals Few A 05/25/18 05/25/18 15:20 15:20 WBC 4.2 L RBC Hgb Hct Lymph % (Auto) 14.7 L Lymph # (Auto) 0.6 L Potassium POC Chloride 112 H Chloride Carbon Dioxide 17 L POC Total CO2 17 L Anion Gap 18.0 H POC BUN 88 H BUN 89 H Creatinine 7.1 H* POC Creatinine 7.7 H* Glucose 132 H POC Glucose 127 H Uric Acid Calcium Phosphorus Lactate Dehydrogenase NT-Pro-B Natriuret Pep Triglycerides Urine Protein Urine Occult Blood Urine RBC Amorphous Crystals Meds: Medications Acetaminophen (Tylenol) 650 mg PO Q4-6HP PRN PRN Reason: PAIN/FEVER > 101 Dextrose (Dextrose 50%) 0 ml IV UD PRN PRN Reason: Hypoglycemia Diagnostic Test (Pha) (Accu-Chek) 1 each FS [facility] Last Admin: 05/27/18 08:00 Dose: 1 each Documented by: Docusate Sodium (Colace) 100 mg PO BID [facility] Last Admin: 05/26/18 21:33 Dose: Not Given Documented by: Fentanyl (Sublimaze) 12.5 mcg IV Q12HP PRN PRN Reason: PAIN LEVEL > 6 Last Admin: 05/26/18 21:18 Dose: 12.5 mcg Documented by: Glucose (Insta-Glucose) 15 gm PO PRN PRN PRN Reason: Hypoglycemia Heparin Sodium (Porcine) (Heparin) 5,000 unit SQ Q12 [facility] Last Admin: 05/26/18 21:18 Dose: 5,000 unit Documented by: Acetaminophen (Ofirmev) 1,000 mg in 100 mls @ 200 mls/hr IV Q6HP PRN PRN Reason: PAIN/FEVER > 101 Last Infusion: 05/27/18 06:16 Dose: Infused Documented by: Insulin Human Lispro (Humalog) 0 unit SQ [facility]; Protocol Last Admin: 05/27/18 08:00 Dose: Not Given Documented by: Iron Carb/Multivit/[place]/Folic Acid (Multivitamin W/Minerals) 1 tab PO DAILY [facility] Last Admin: 05/26/18 08:31 Dose: Not Given Documented by: Nicotine (Nicoderm) 21 mg TOPICAL DAILY@1000 [facility] Last Admin: 05/26/18 09:10 Dose: 21 mg Documented by: Ondansetron HCl (Zofran) 4 mg IV Q4-6HP PRN PRN Reason: Nausea And Vomiting Last Admin: 05/25/18 22:37 Dose: 4 mg Documented by: Pneumococcal Polyvalent Vaccine (Pneumovax 23) 0.5 ml IM .ONCE ONE Stop: 05/27/18 10:01 Promethazine HCl (Phenergan) 6.25 mg IV Q4HP PRN PRN Reason: Nausea Last Admin: 05/26/18 09:11 Dose: 6.25 mg Documented by: Senna/Docusate Sodium (Senna Plus Tablet) 1 tab PO HS [facility] Last Admin: 05/26/18 21:33 Dose: Not Given Documented by: Sevelamer Carbonate (Renvela) 800 mg PO TIDCC [facility] Last Admin: 05/27/18 08:12 Dose: 800 mg Documented by: Sodium Chloride (Saline Flush) 10 ml IV Q8 [facility] Last Admin: 05/27/18 05:47 Dose: 10 ml Documented by: Zolpidem Tartrate (Ambien) 5 mg PO HSP PRN PRN Reason: Insomnia Last Admin: 05/26/18 21:32 Dose: 5 mg Documented by: Medical - PN: A/P - Time Spent With Patient Total time spent is greater than 50% in coordination of care (as documented) at patient's floor/unit and/or counseling patient: 15 - 24 minutes (1) ESRD (end stage renal disease) Status: Acute Assessment and plan: * End-stage renal disease-ongoing hemodialysis per nephrology * Diarrhea with volume depletion -persistent. Continue further workup including C. difficile/fecal leukocyte stain * Syncope likely secondary to volume depletion, no further events, clinically resolved. 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 * History of hypertension management per nephrology, amlodipine on hold * History of COPD-continue bronchodilators * DM type II continue basal prandial insulin, hold glipizide/sitagliptin. Start CCD * Hyperlipidemia on statin * Tobacco dependence on nicotine patch * Full code * Prophylaxis heparin Plan * Hemodialysis per nephrology * Await echocardiogram * Diarrhea workup * Continue fluid electrolyte management per nephrology * Restart statin/aspirin Medical - PN: Qual - VTE Deep Vein Thrombosis/Pulmonary Embolism Present on Admission: No
[2018-05-27] MEDS ORDERED: POTASSIUM CHLORIDE 20 MEQ TABLET PO ONE (08:46)
[2018-05-27 08:53] LABS: Band Neutrophils % 1 % (0-10); Eosinophils % (Manual) 2 % (0-7); Lymphocytes % 23 % (15-49); Monocytes % (Manual) 13 % (1-12); Platelet Estimate NORMAL (NORMAL); RBC Morphology NORMAL (NORMAL); Segmented Neutrophils % 61 % (38-78)
[2018-05-27] MEDS ORDERED: ATORVASTATIN 20 MG TABLET PO SCH ×2 (09:00→21:00)
[2018-05-27] MEDS ORDERED: ROSUVASTATIN CALCIUM 40 MG PO SCH (09:00)
[2018-05-27] MEDS: DOCUSATE SODIUM 100 MG CAPSULE PO SCH ×2 (09:59→20:18)
[2018-05-27] MEDS ORDERED: PNEUMOCOCCAL 23-VAL P-SAC VAC 0.5 ML SYRINGE IM ONE (10:00)
[2018-05-27] MEDS: ASPIRIN 81 MG TAB.CHEW PO SCH (10:21)
[2018-05-27] MEDS: MULTIVIT,THER IRON,CA,FA & MIN 1 TABLET PO SCH (10:21)
[2018-05-27] MEDS: 0.9 % SODIUM CHLORIDE 1,000 ML IV SCH (10:21)
[2018-05-27] MEDS: NICOTINE 21 MG PATCH TOPICAL SCH (10:21)
[2018-05-27] MEDS: HEPARIN 5,000 UNIT/ML VIAL SQ SCH ×2 (10:21→20:17)
[2018-05-27] MEDS: fentaNYL 100 MCG/2 ML VIAL IV PRN (10:36)
[2018-05-27] MEDS ORDERED: IPRATROPIUM/ALBUTEROL 3 ML AMPUL.NEB NEB SCH (11:00)
[2018-05-27] MEDS: ALBUTEROL SULFATE 1 PUFF INHALER INH SCH (16:03)
--- NOTE | 2018-05-27 17:44 | Nephrology Progress Note ---
Subjective Patient information: Note initiated : 05/27/18 at 5:40 pm Service Date, if different from initiated Date: [] Patient: Verito Alcantar 58 y/o F admitted on 05/25/18 for syncopal episode in Dr. Wiley, nausea/diarrhea. Chief Complaint: [] Principal diagnosis: uremia Interval history: patient states she had diarrhea last night and has nausea again her BP is low normal she did have her dialysis with no issues, she does have pain at the catheter site and has received some fentanyl for this and pain improved denies SOB, CP no edema no other issues Pertinent ROS: as above Objective - Vital Signs Vital signs: Vital Signs Temp Pulse Pulse Resp BP BP Pulse Ox 05/27/18 16:00 99.0 F 18 98/54 95 05/27/18 12:00 98.4 F 18 103/72 95 05/27/18 11:20 80 18 94 05/27/18 11:18 88 18 05/27/18 08:00 98.4 F 81 18 92/54 94 05/27/18 04:00 98.8 F 76 16 92/53 94 05/27/18 00:00 99.1 F H 66 16 107/59 95 05/26/18 20:00 98.3 F 75 20 97/65 99 05/26/18 19:28 96.9 F L 65 100/71 05/26/18 19:16 65 114/71 05/26/18 19:04 80 111/77 05/26/18 18:47 77 108/77 05/26/18 18:31 68 102/71 05/26/18 18:25 74 106/72 05/26/18 18:03 80 123/78 05/26/18 17:49 77 111/77 Intake and Output 05/27/18 05/27/18 05/27/18 05:59 13:59 21:59 Intake Total 240 500 100 Output Total 975 300 Balance 240 -475 -200 Intake: IV 100 100 Oral 240 400 Output: Void Amount 625 300 Stool 350 Other: Meal Breakfast Percent of Meal Consumed 50% Feeding Ability Assist with Tray Set Up Urine Appearance Clear Sediment Urine Color Dark Yellow Urine Odor Normal Stool Size Small Moderate Stool Color Brown Brown Green Green Stool Consistency Liquid Soft Loose # Bowel Movements 1 1 Intake & Output: Intake & Output 05/27/18 05/27/18 05/27/18 05:59 13:59 21:59 Intake Total 240 500 100 Output Total 975 300 Balance 240 -475 -200 Intake: IV 100 100 Oral 240 400 Output: Void Amount 625 300 Stool 350 Other: Meal Breakfast Percent of Meal Consumed 50% Feeding Ability Assist with Tray Set Up Urine Appearance Clear Sediment Urine Color Dark Yellow Urine Odor Normal Stool Size Small Moderate Stool Color Brown Brown Green Green Stool Consistency Liquid Soft Loose # Bowel Movements 1 1 - General Appearance General appearance: appears started age, chronically ill, frail EENT: mucous membranes moist Neck: no JVD Respiratory: clear (no wheezing today) Cardiology: no rub, no edema, normal S1, normal S2 Gastrointestinal: no tenderness, no guarding Integumentary: no rash, warm and dry Neurologic: alert and oriented x3 Musculoskeletal: no erythema, no cyanosis Psychiatric: mood/affect appropriate - Lab 05/27/18 03:52 05/27/18 03:52 Most recent lab results Calcium 8.0 mg/dl (8.6-10.4) L 05/27/18 03:52 Phosphorus 5.2 mg/dL (2.7-4.5) H 05/27/18 03:52 Magnesium 1.8 mg/dL (1.6-2.5) 05/27/18 03:52 Assessment and Plan (1) Acute on chronic renal failure Status: Acute (2) Metabolic acidosis Status: Acute (3) Secondary hyperparathyroidism (of renal origin) Status: Acute - Narrative A/P Narrative: Patient with acute on chronic renal failure vs progressive decline in renal function, s.creatinine a year ago was 3.6-4.0 a year ago, on 05/21/18 was 5.2 and now 7.1-6.5, egfr 6 unchanged despite IV hydration, initiated dialysis yesterday, s.creatinine down to 5.5 today, non oliguric hypokalemia today diarrhea, persistent nausea, BP low normal, given this will hold off on HD, no urgent need today stool studies today potassium chloride one dose 20meq, will repeat bmp in pm will re initiate IVF given poor po intake, low normal BP Will follow along please dose meds to egfr diarrhea, overnight , cdiff negative, stool leuc negative, if persistent will defer further work up and management to hospitalist HTN: will hold off on amlodipine for now DM type 2: if januvia is resumed will need to be dosed per dialysis will follow along
[2018-05-27] MEDS: ZOLPIDEM 5 MG TABLET PO PRN (20:17)
[2018-05-27] MEDS: SENNOSIDES/DOCUSATE SODIUM 1 TAB TABLET PO SCH (20:18)
[2018-05-27] MEDS ORDERED: MAG HYDROX/AL HYDROX/SIMETH 30 ML ORAL.SUSP PO PRN (20:42)
[2018-05-27] MEDS: PROMETHAZINE 25 MG/ML VIAL IV PRN (21:48)
[2018-05-27] MEDS: OMEPRAZOLE 20 MG CAPSULE PO SCH (21:56)
[2018-05-27] MEDS: ONDANSETRON 4 MG/2 ML VIAL IV PRN (23:30)
[2018-05-28] MEDS: 0.9 % SODIUM CHLORIDE 1,000 ML IV SCH ×3 (00:16→21:59)
[2018-05-28] MEDS: ALBUTEROL SULFATE 1 PUFF INHALER INH SCH ×3 (01:01→09:13)
[2018-05-28] MEDS: 0.9 % SODIUM CHLORIDE 10 ML SYRINGE IV SCH ×4 (05:38→21:58)
[2018-05-28 06:53] LABS: Mean Cell Volume 96.2 fL (80.0-100.0); Mean Corpuscular HGB Conc 32.9 g/dL (31.0-36.0); Platelet Count 161 K/mcL (140-440); Red Cell Distribution Width 12.7 % (11.5-14.5)
[2018-05-28 07:21] LABS: ALT/SGPT 18 U/l (0-40); Albumin 3.5 gm/dL (3.2-5.2); Albumin/Globulin Ratio 1.2 (1.0-2.3); Alkaline Phosphatase 71 U/L (39-117); Bilirubin,Direct < 0.2 mg/dL (0.0-0.3); Blood Urea Nitrogen 53 mg/dl (6-20); Gamma Glutamyl Transpeptidase 15 U/L (5-36); Uric Acid 5.9 mg/dL (2.5-8.0)
[2018-05-28 07:31] LABS: Band Neutrophils % 3 % (0-10); Eosinophils % (Manual) 1 % (0-7); Lymphocytes % 11 % (15-49); Monocytes % (Manual) 13 % (1-12); Platelet Estimate NORMAL (NORMAL); RBC Morphology NORMAL (NORMAL); Segmented Neutrophils % 72 % (38-78)
[2018-05-28] MEDS: OMEPRAZOLE 20 MG CAPSULE PO SCH (07:49)
[2018-05-28] MEDS: SEVELAMER 800 MG TABLET PO SCH (07:49)
[2018-05-28] MEDS: INSULIN LISPRO 1 UNIT/0.01 ML UNIT SQ SCH ×4 (07:49→21:43)
[2018-05-28] MEDS: NICOTINE 21 MG PATCH TOPICAL SCH (09:05)
[2018-05-28] MEDS: MULTIVIT,THER IRON,CA,FA & MIN 1 TABLET PO SCH (09:06)
[2018-05-28] MEDS: DOCUSATE SODIUM 100 MG CAPSULE PO SCH ×2 (09:06→21:43)
[2018-05-28] MEDS: ASPIRIN 81 MG TAB.CHEW PO SCH (09:06)
[2018-05-28] MEDS: HEPARIN 5,000 UNIT/ML VIAL SQ SCH ×2 (09:08→21:56)
[2018-05-28] MEDS ORDERED: ALBUTEROL SULFATE 1 PUFF INHALER INH PRN ×2 (09:09→10:15)
[2018-05-28] MEDS: ONDANSETRON 4 MG/2 ML VIAL IV PRN (09:13)
[2018-05-28] MEDS ORDERED: ZOLPIDEM 5 MG TABLET PO PRN (10:15)
[2018-05-28] MEDS ORDERED: DEXTROSE 31 GM ORAL.SUSP PO PRN (10:15)
[2018-05-28] MEDS ORDERED: fentaNYL 100 MCG/2 ML VIAL IV PRN (10:15)
[2018-05-28] MEDS ORDERED: PROMETHAZINE 25 MG/ML VIAL IV PRN (10:15)
[2018-05-28] MEDS ORDERED: ONDANSETRON 4 MG/2 ML VIAL IV PRN (10:15)
[2018-05-28] MEDS ORDERED: DEXTROSE 50% 50 ML VIAL IV PRN (10:15)
[2018-05-28] MEDS ORDERED: ACETAMINOPHEN 1,000 MG/100 ML BOTTLE IV PRN (10:15)
[2018-05-28] MEDS ORDERED: ACETAMINOPHEN 325 MG TABLET PO PRN (10:15)
[2018-05-28] MEDS ORDERED: MAG HYDROX/AL HYDROX/SIMETH 30 ML ORAL.SUSP PO PRN (10:15)
--- NOTE | 2018-05-28 10:48 | Internal Med Progress Note ---
Medical - PN: Subj Patient information: Note initiated : 05/28/18 at 10:46 am Service Date, if different from initiated Date: [] Patient: Verito Alcantar a 58 y/o F admitted on 05/25/18 for syncopal episode in Office, nausea/diarrhea. Chief Complaint: [] Interval history: Ms. Alcantar is a 58 year old F with a history of chronic kidney disease who had a syncopal episode at nephrology clinic today and was subsequently referred to the ER. Patient over the last 10 days has been experiencing profuse diarrhea along with weakness. She denies associated abdominal pain fever, mucus or blood. However over the last 1 week she has lost over 10 pounds. She feels extremely dehydrated. She also developed upper respiratory symptoms around 5 days ago for which she was evaluated at PCP office and was prescribed doxycycline for 10 days. She endorses to extreme fatigue, malaise and weakness along with nausea that has progressed to the point she is unable to function prompting her to follow-up with nephrology clinic where she experienced syncopal episode. Notably patient had a history of chronic kidney disease with a recent creatinine of over 5 however repeat creatinine today in the ER was over 7 with a BUN 89. Nephrology was consulted and patient will undergo hemodialysis after HD catheter placement in 24 hours. Hospitalist service was consulted for admission At the time of evaluation patient is accompanied with her daughter and . She endorses to history as above. She denies NSAID use, changes in medication. She denies sick contacts. 05/26-patient doing well. Creatinine down from 7.1-6.5. Hemodialysis catheter placement today at [place]. Nephrology on board. No other concerns per nursing staff. No overnight events except for persistent nausea. 05/27- ongoing hemodialysis. Patient clinically improving. Doing well this morning. On bronchodilators. Discharge planning per nephrology. No overnight fever chills or telemetry events 05/28 Pt seen examined, no acute complaints, still has diarrhea, but one episode per day, has nausea, which seems to be persistent, vomiting last night. No cp, sob, or abdominal pain reported Pertinent ROS: Denies headache, dizziness Denies chest pain, palpitations Denies cough or shortness of breath Denies abdominal pain, Present nausea or vomiting. - Constitutional Vitals: Vital Signs Temp Pulse Resp BP Pulse Ox 98 F 83 18 106/67 96 05/28/18 07:45 05/28/18 07:45 05/28/18 07:45 05/28/18 07:45 05/28/18 07:45 Period Temp Pulse Resp BP Sys/Morales Pulse Ox Last 24 Hr 98 F-99.0 F 80-90 18-18 98-116/54-78 94-97 Intake and Output 05/27/18 05/28/18 05/28/18 21:59 05:59 13:59 Intake Total 300 1360 Output Total 1600 975 Balance -1300 385 Weight 163 lb Intake & Output: Intake & Output 05/27/18 05/28/18 05/28/18 21:59 05:59 13:59 Intake Total 300 1360 Output Total 1600 975 Balance -1300 385 Weight 163 lb Intake: IV 100 1000 Sodium Chloride 0.9% 1,000 ml @ 1000 75 mls/hr IV .[id number] [facility] Rx#: [id number] Oral 200 360 Output: Void Amount 1600 900 Emesis 75 Other: Meal Dinner Jello Percent of Meal Consumed 50% 100% Feeding Ability Assist with Tray Set Up Urine Appearance Sediment Urine Color Dark Yellow Dark Yellow Urine Odor Normal Strong Stool Size Small Stool Color Brown Green Stool Consistency Loose # Bowel Movements 1 Exam: Constitutional; Afebrile, cooperative, alert, not in distress. Respiratory system: Air Entry equal on both sides, No crackles or wheezing, no rhonchi. CVS- Rate rhythm regular, S1,S2 heard, no gallop, no rub. Abdomen- Soft nontender abdomen, no organomegaly, no tenderness, no guarding or rigidity, FILAMENT SHAPER- AOOx3, moving all extremities, no gross focal deficit noted. Medical - PN: Obj Da - Labs CBC & Chem 7: 05/28/18 03:35 05/28/18 03:35 Labs: Abnormal Lab Results 05/28/18 05/28/18 05/27/18 03:35 03:35 03:52 WBC RBC 3.80 L Hgb Hct Lymph % (Auto) Lymph # (Auto) Lymphocytes % 11 L Monocytes % (Manual) 13 H Potassium 3.1 L POC Chloride Chloride Carbon Dioxide POC Total CO2 Anion Gap 18.0 H POC BUN BUN 53 H 50 H Creatinine 5.8 H* 5.5 H* POC Creatinine Glucose 125 H 136 H POC Glucose Uric Acid Calcium 8.4 L 8.0 L Phosphorus 4.6 H 5.2 H Lactate Dehydrogenase 261 H 278 H NT-Pro-B Natriuret Pep Triglycerides 373 H 392 H Urine Protein Urine Occult Blood Urine RBC Amorphous Crystals 05/27/18 05/26/18 05/26/18 03:52 03:30 03:30 WBC 4.1 L 3.3 L RBC 3.87 L 3.74 L Hgb 11.9 L Hct 35.6 L Lymph % (Auto) Lymph # (Auto) Lymphocytes % Monocytes % (Manual) 13 H Potassium POC Chloride Chloride 109 H Carbon Dioxide 20 L POC Total CO2 Anion Gap POC BUN BUN 80 H Creatinine 6.5 H* POC Creatinine Glucose POC Glucose Uric Acid 8.1 H Calcium 8.5 L Phosphorus 4.8 H Lactate Dehydrogenase NT-Pro-B Natriuret Pep Triglycerides 381 H Urine Protein Urine Occult Blood Urine RBC Amorphous Crystals 05/25/18 05/25/18 05/25/18 17:38 15:34 15:20 WBC RBC Hgb Hct Lymph % (Auto) Lymph # (Auto) Lymphocytes % Monocytes % (Manual) Potassium POC Chloride 112 H Chloride Carbon Dioxide 17 L POC Total CO2 17 L Anion Gap 18.0 H POC BUN 88 H BUN 89 H Creatinine 7.1 H* POC Creatinine 7.7 H* Glucose 132 H POC Glucose 127 H Uric Acid Calcium Phosphorus Lactate Dehydrogenase NT-Pro-B Natriuret Pep 783.1 H Triglycerides Urine Protein 100 A Urine Occult Blood 0.2 A Urine RBC 5 H Amorphous Crystals Few A 05/25/18 15:20 WBC 4.2 L RBC Hgb Hct Lymph % (Auto) 14.7 L Lymph # (Auto) 0.6 L Lymphocytes % Monocytes % (Manual) Potassium POC Chloride Chloride Carbon Dioxide POC Total CO2 Anion Gap POC BUN BUN Creatinine POC Creatinine Glucose POC Glucose Uric Acid Calcium Phosphorus Lactate Dehydrogenase NT-Pro-B Natriuret Pep Triglycerides Urine Protein Urine Occult Blood Urine RBC Amorphous Crystals Meds: Medications Acetaminophen (Tylenol) 650 mg PO Q4-6HP PRN PRN Reason: PAIN/FEVER > 101 Al Hydrox/Mg Hydrox/Simethicone (Maalox) 30 ml PO Q4HP PRN PRN Reason: Dyspepsia Albuterol Sulfate (Ventolin) 2 puff INH Q4HP PRN PRN Reason: Shortness Of Breath Or Wheezing Aspirin (Aspirin) 81 mg PO DAILY [facility] Atorvastatin Calcium (Lipitor) 80 mg PO HS [facility] Dextrose (Dextrose 50%) 0 ml IV UD PRN PRN Reason: Hypoglycemia Diagnostic Test (Pha) (Accu-Chek) 1 each FS ACHS [facility] Docusate Sodium (Colace) 100 mg PO BID [facility] Fentanyl (Sublimaze) 12.5 mcg IV Q12HP PRN PRN Reason: PAIN LEVEL > 6 Glucose (Insta-Glucose) 15 gm PO PRN PRN PRN Reason: Hypoglycemia Heparin Sodium (Porcine) (Heparin) 5,000 unit SQ Q12 [facility] Sodium Chloride (Sodium Chloride 0.9%) 1,000 mls @ 75 mls/hr IV .[id number] [facility] Acetaminophen (Ofirmev) 1,000 mg in 100 mls @ 200 mls/hr IV Q6HP PRN PRN Reason: PAIN/FEVER > 101 Insulin Human Lispro (Humalog) 0 unit SQ ACHS [facility]; Protocol Iron Carb/Multivit/Staff Sonographer/Folic Acid (Multivitamin W/Minerals) 1 tab PO DAILY [facility] Nicotine (Nicoderm) 21 mg TOPICAL DAILY@1000 [facility] Omeprazole (Prilosec) 20 mg PO ACB [facility] Ondansetron HCl (Zofran) 4 mg IV Q4-6HP PRN PRN Reason: Nausea And Vomiting Promethazine HCl (Phenergan) 6.25 mg IV Q4HP PRN PRN Reason: Nausea Senna/Docusate Sodium (Senna Plus Tablet) 1 tab PO HS [facility]DAY Sodium Chloride (Saline Flush) 10 ml IV Q8 [facility] Zolpidem Tartrate (Ambien) 5 mg PO HSP PRN PRN Reason: Insomnia Medical - PN: A/P - Time Spent With Patient Total time spent is greater than 50% in coordination of care (as documented) at patient's floor/unit and/or counseling patient: - Narrative A/P Narrative: A/P Acute on Chronic Renal failure - on HD per nephrology Diarrhea -Stable and improving, workup negative so far, etiology? Cdiff neg, no wbc seen -ova parasite pending, -Get CT without IV contrast, -GI eval? need for colonoscopy? will decide after CT and clinical response, pt is improving slowly Nausea/ Vomiting -since being admitted to hospital -CT should help -on PPI, -due to sevelamer? d/c same for now Syncope -no events on tele, due to dehydration COPD - no wheezing on exam -prn bronchodilators HTn -BP stable, hold bp meds for now DM -SSI insulin for glucose control Tobacco abuse -nicotine replacement HLD -continue home dose of statin DVT -hep sq Diet -Renal /Carb consistent Full code Medical - PN: Qual - VTE Deep Vein Thrombosis/Pulmonary Embolism Present on Admission: No
[2018-05-28] MEDS ORDERED: METOCLOPRAMIDE 10 MG/2 ML VIAL IV ONE (11:17)
--- NOTE | 2018-05-28 13:24 | Cat Scan Report ---
CLINICAL INFORMATION: Nausea and diarrhea COMPARISON: None. TECHNIQUE: The abdomen was imaged without oral or IV contrast, scanning from the diaphragm to the symphysis pubis. Sagittal and coronal reformats were created. The radiation exposure was limited using dose reduction technology. FINDINGS: There are several bands of scar or discoid atelectasis in both lung bases. The heart size is normal. There are calcified plaques in the coronary arteries with the greatest involvement in the right coronary. There is a cluster of large dense calcifications in the medial segment left lobe of liver near the falciform ligament. No associated mass is identified. The right lobe and caudate are normal. The overall size liver is normal and the remainder the liver is homogeneous. The spleen is normal size and homogeneous. Gallbladder is severely contracted. No stones are seen within the lumen. There is stranding of the fat around the pylorus, duodenal bulb, anterior head of the pancreas and the adjacent hepatic flexure of the colon. The pylorus appears enlarged and has a bulbous contour in the coronal reformatted views. No obvious mass or ulceration are seen in this region and there are no colonic diverticula. The pancreas does not appear to be inflamed. There is no dilatation of the pancreatic duct. There is mild hyperplasia of the left adrenal. The right adrenal is normal. Kidneys are normal size and contour and there is no evidence of a kidney stone or hydronephrosis. There is oral contrast in the duodenum as well as the distal small bowel and proximal colon. No abscess ascites or lymphadenopathy are present within the abdomen or pelvis. There are scattered plaques in the aorta and iliac arteries. There is mild ectasia of the distal abdominal aorta. Severe disc space narrowing is present at L5-S1. The appendix is nonvisualized. No abnormality seen in the uterus or ovaries. IMPRESSION: Inflammation in the right upper quadrant. Peptic ulcer disease should be suspected. This is less likely due to pancreatitis. No evidence of ileus, inflammatory bowel disease, diverticulitis or bowel obstruction Interpreted and Authenticated by: Crescencio Cazares 05/28/18
[2018-05-28 15:06] LABS: Amylase 100 U/L (28-100); Lipase 155 U/L (7-60)
--- NOTE | 2018-05-28 17:11 | Nephrology Progress Note ---
Subjective Patient information: Note initiated : 05/28/18 at 5:07 pm Service Date, if different from initiated Date: [] Patient: Verito Alcantar 58 y/o F admitted on 05/25/18 for syncopal episode in Dr. Wiley, nausea/diarrhea. Chief Complaint: [] Principal diagnosis: uremia Interval history: patient with persistent nausea, also has loose stools denies abdominal pain no SOB, CP BP remains low normal no dizziness, walking, doing PT with no issues CT abdomen shows inflammation in the fat surrounding stomach, duodenum and some part of pancreas, lipase only at 155, GI has been consulted Pertinent ROS: as above Objective - Vital Signs Vital signs: Vital Signs Temp Pulse Pulse Resp BP BP Pulse Ox 05/28/18 17:00 80 91/53 05/28/18 16:45 80 102/73 05/28/18 16:30 80 99/66 05/28/18 16:15 91 H 100/73 05/28/18 16:00 72 106/73 05/28/18 15:59 18 92/61 97 05/28/18 15:45 88 98/63 05/28/18 15:30 94 H 92/61 05/28/18 15:15 94 H 99/70 05/28/18 15:00 94 H 90/62 05/28/18 14:45 87 107/55 05/28/18 14:30 86 92/62 05/28/18 14:10 98.9 F 80 87/53 05/28/18 12:00 98.4 F 18 112/70 93 05/28/18 07:45 98 F 83 18 106/67 96 05/28/18 04:00 98.2 F 81 18 109/59 94 05/27/18 23:31 98.6 F 90 18 116/78 97 05/27/18 20:00 98.6 F 18 109/71 97 Intake and Output 05/28/18 05/28/18 05/28/18 05:59 13:59 21:59 Intake Total 1360 1276 Output Total 975 100 0 Balance 385 1176 0 Intake: IV 1000 916 Sodium Chloride 0.9% 1,000 ml @ 1000 75 mls/hr IV .[id number] [facility] Rx#: [id number] Oral 360 360 Output: Void Amount 900 100 Emesis 75 Hemodialysis UF 0 Other: Meal Jello Breakfast Percent of Meal Consumed 100% 75% Feeding Ability Independent Urine Color Dark Yellow Urine Odor Strong Stool Size Moderate Stool Color Brown Stool Consistency Liquid # Bowel Movements 1 Intake & Output: Intake & Output 05/28/18 05/28/18 05/28/18 05:59 13:59 21:59 Intake Total 1360 1276 Output Total 975 100 0 Balance 385 1176 0 Intake: IV 1000 916 Sodium Chloride 0.9% 1,000 ml @ 1000 75 mls/hr IV .[id number] [facility] Rx#: [id number] Oral 360 360 Output: Void Amount 900 100 Emesis 75 Hemodialysis UF 0 Other: Meal Jello Breakfast Percent of Meal Consumed 100% 75% Feeding Ability Independent Urine Color Dark Yellow Urine Odor Strong Stool Size Moderate Stool Color Brown Stool Consistency Liquid # Bowel Movements 1 - General Appearance General appearance: appears started age, frail EENT: mucous membranes moist Neck: no JVD Respiratory: clear Cardiology: no rub, no edema, normal S1, normal S2 Gastrointestinal: no tenderness, no guarding Integumentary: warm and dry Neurologic: alert and oriented x3 Musculoskeletal: no erythema, no cyanosis Psychiatric: mood/affect appropriate - Lab 05/28/18 03:35 05/28/18 03:35 Most recent lab results Calcium 8.4 mg/dl (8.6-10.4) L 05/28/18 03:35 Phosphorus 4.6 mg/dL (2.7-4.5) H 05/28/18 03:35 Magnesium 2.0 mg/dL (1.6-2.5) 05/28/18 03:35 Assessment and Plan (1) Acute on chronic renal failure no improvement in renal function, s.creatinine at 5.8 today, ongoing IVF BP remains low normal no edema or s/o fluid excess no anemia no k issues, no acidosis will do HD today for 3 hrs, using revaclear dialyser, 3K/2.5Ca, no UF removal, QB 300ml/min, QD 600ml/min will ct IVF given persistent negative i/o balance and until oral intake improves dose meds to egfr/dialysis avoid nephrotoxic medications will hold renvela as diarrhea recurred since this was started ongoing work up for GI symptoms and Gastroenterology has been consulted as well will follow along Status: Acute (2) Metabolic acidosis Status: Acute (3) Secondary hyperparathyroidism (of renal origin) Status: Acute
[2018-05-28] MEDS ORDERED: SENNOSIDES/DOCUSATE SODIUM 1 TAB TABLET PO SCH (21:00)
[2018-05-28] MEDS ORDERED: ATORVASTATIN 20 MG TABLET PO SCH (21:00)
[2018-05-29] MEDS: 0.9 % SODIUM CHLORIDE 10 ML SYRINGE IV SCH ×2 (05:51→12:45)
[2018-05-29 06:32] LABS: Mean Cell Volume 95.8 fL (80.0-100.0); Mean Corpuscular HGB Conc 33.1 g/dL (31.0-36.0); Platelet Count 156 K/mcL (140-440); RBC 3.49 M/mcL (4.00-5.20); Red Cell Distribution Width 12.6 % (11.5-14.5)
[2018-05-29 06:58] LABS: Band Neutrophils % 1 % (0-10); Lymphocytes % 37 % (15-49); Monocytes % (Manual) 13 % (1-12); Platelet Estimate NORMAL (NORMAL); RBC Morphology NORMAL (NORMAL); Segmented Neutrophils % 49 % (38-78)
[2018-05-29] MEDS: INSULIN LISPRO 1 UNIT/0.01 ML UNIT SQ SCH ×3 (07:05→17:58)
[2018-05-29 07:17] LABS: ALT/SGPT 18 U/l (0-40); Albumin 3.2 gm/dL (3.2-5.2); Albumin/Globulin Ratio 1.2 (1.0-2.3); Alkaline Phosphatase 68 U/L (39-117); Bilirubin,Direct < 0.2 mg/dL (0.0-0.3); Blood Urea Nitrogen 30 mg/dl (6-20); Gamma Glutamyl Transpeptidase 12 U/L (5-36); Uric Acid 3.8 mg/dL (2.5-8.0)
[2018-05-29] MEDS: DOCUSATE SODIUM 100 MG CAPSULE PO SCH (07:18)
[2018-05-29] MEDS ORDERED: OMEPRAZOLE 20 MG CAPSULE PO SCH (07:30)
[2018-05-29] MEDS: HEPARIN 5,000 UNIT/ML VIAL SQ SCH (08:17)
[2018-05-29] MEDS ORDERED: ASPIRIN 81 MG TAB.CHEW PO SCH (09:00)
[2018-05-29] MEDS ORDERED: MULTIVIT,THER IRON,CA,FA & MIN 1 TABLET PO SCH (09:00)
[2018-05-29] MEDS ORDERED: NICOTINE 21 MG PATCH TOPICAL SCH (10:00)
[2018-05-29] MEDS ORDERED: KETAMINE HCL 50 MG/ML ML IV PRN (12:24)
[2018-05-29] MEDS ORDERED: PROPOFOL 200 MG/20 ML VIAL IV SCH (12:30)
[2018-05-29] MEDS ORDERED: MIDAZOLAM 2 MG/2 ML VIAL IV SCH (12:30)
[2018-05-29] MEDS: 0.9 % SODIUM CHLORIDE 1,000 ML IV SCH (12:37)
[2018-05-29 13:30] LABS: Hepatitis B Surface Antibody POSITIVE (NEGATIVE); Hepatitis B Surface Antigen NEGATIVE (NEGATIVE)
[2018-05-29] MEDS ORDERED: MIDAZOLAM 2 MG/2 ML VIAL ONE (13:33)
[2018-05-29] MEDS ORDERED: PROPOFOL 20 ML IV ONE ×2 (13:33→13:34)
--- NOTE | 2018-05-29 14:02 | Nephrology Progress Note ---
Subjective Patient information: Note initiated : 05/29/18 at 1:57 pm Service Date, if different from initiated Date: [] Patient: Verito Alcantar 58 y/o F admitted on 05/25/18 for syncopal episode in Dr. Wiley, nausea/diarrhea. Chief Complaint: [] Principal diagnosis: uremia Interval history: Patient states her nausea has resolved thinks diarrhea has improved as well denies SOB, CP no edema wants to go home scheduled for EGD today given CT scan findings Pertinent ROS: as above Objective - Vital Signs Vital signs: Vital Signs Temp Pulse Pulse Resp BP BP Pulse Ox 05/29/18 12:00 98.5 F 16 96/63 94 05/29/18 07:10 97.6 F 20 102/66 96 05/29/18 03:31 98.5 F 72 16 96/64 96 05/28/18 23:57 98.3 F 84 16 91/64 94 05/28/18 20:00 98.5 F 92 H 16 105/68 92 05/28/18 17:20 99 F 80 97/66 05/28/18 17:00 80 91/53 05/28/18 16:45 80 102/73 05/28/18 16:30 80 99/66 05/28/18 16:15 91 H 100/73 05/28/18 16:00 72 106/73 05/28/18 15:59 99.0 F 18 92/61 97 05/28/18 15:45 88 98/63 05/28/18 15:30 94 H 92/61 05/28/18 15:15 94 H 99/70 05/28/18 15:00 94 H 90/62 05/28/18 14:45 87 107/55 05/28/18 14:30 86 92/62 05/28/18 14:10 98.9 F 80 87/53 Intake and Output 05/28/18 05/29/18 05/29/18 21:59 05:59 13:59 Intake Total 971 931 2279 Output Total 800 Balance -575 677 1524 Intake: IV 1000 Sodium Chloride 0.9% 1,000 ml @ 1000 75 mls/hr IV .[id number] [facility] Rx#: [id number] Oral 240 600 Output: Void Amount 800 Hemodialysis UF 0 Other: Meal Dinner Percent of Meal Consumed 100% Feeding Ability Independent Urine Color Bright Yellow Urine Odor Normal Stool Size Moderate Stool Color Brown Stool Consistency Soft Loose # Bowel Movements 1 Weight 161 lb 161 lb Patient Weight 05/30/18 05:59 Weight 161 lb Intake & Output: Intake & Output 05/28/18 05/29/18 05/29/18 21:59 05:59 13:59 Intake Total 623 493 2887 Output Total 800 Balance -932 932 1993 Weight 161 lb 161 lb Intake: IV 1000 Sodium Chloride 0.9% 1,000 ml @ 1000 75 mls/hr IV .[id number] [facility] Rx#: [id number] Oral 240 600 Output: Void Amount 800 Hemodialysis UF 0 Other: Meal Dinner Percent of Meal Consumed 100% Feeding Ability Independent Urine Color Bright Yellow Urine Odor Normal Stool Size Moderate Stool Color Brown Stool Consistency Soft Loose # Bowel Movements 1 - General Appearance General appearance: appears started age, frail EENT: mucous membranes moist Neck: no JVD Respiratory: clear Cardiology: no rub, regular rate, regular rhythm Gastrointestinal: no tenderness, no guarding Integumentary: warm and dry Neurologic: alert and oriented x3 Musculoskeletal: no erythema Psychiatric: mood/affect appropriate - Lab 05/29/18 05:00 05/29/18 05:00 Most recent lab results Calcium 8.1 mg/dl (8.6-10.4) L 05/29/18 05:00 Phosphorus 4.9 mg/dL (2.7-4.5) H 05/29/18 05:00 Magnesium 2.0 mg/dL (1.6-2.5) 05/29/18 05:00 Assessment and Plan (1) Acute on chronic renal failure patient was dialysed yesterday she wants to go home tonight after EGD If the patient gets discharged hold antihypertensives as BP still low normal she can resume phoslo for phos binding she will dialyse tomorrow am as outpt if she gets discharged her januvia and crestor dose needs to be adjusted to her renal function her K is normal range but on lower side, this should improve as her appetite improves and GI symptoms (diarrhea) resolves given her egfr I will not start K supplement Status: Acute (2) Metabolic acidosis Status: Acute (3) Secondary hyperparathyroidism (of renal origin) Status: Acute
--- NOTE | 2018-05-29 17:38 | Discharge Summary ---
Medical - DS: Prov Patient information: Note initiated : 05/29/18 at 5:35 pm Service Date, if different from initiated Date: [] Patient: Verito Alcantar 58 y/o F admitted on 05/25/18 for syncopal episode in Dr. Wiley, nausea/diarrhea. Chief Complaint: [] Date of admission: 05/25/18 19:03 Discharge date: 05/29/18 Primary care physician: IVETH Staley Consults: 05/25/18 Consult to Physician [CONS] Stat Comment: Consulting Provider: Franck Echevarria Reason For Exam: Physician to Consult 05/25/18 16:16 Consult to Physician [CONS] Stat Comment: Consulting Provider: Merry Ramirez Reason For Exam: Physician to Consult 05/28/18 14:12 Consult to Physician [CONS] Routine Comment: Consulting Provider: Florentin Herron Reason For Exam: Physician to Consult Discharging clinician: Nish Tellez Medical - DS: Meds - Discharge Medications Prescriptions: Pantoprazole [Protonix] 40 mg PO QAMAC #90 tablet Rosuvastatin Calcium 10 mg PO DAILY #30 tablet sitaGLIPtin PHOSPHATE [Januvia] 25 mg PO DAILY #30 tablet Active and Home Medications: Home Medications aspirin 81 mg tablet,delayed release 81 mg PO QDAY 10/23/16 [History Confirmed 05/25/18 Last Taken 05/16/18 09:00] calcium acetate 667 mg tablet 667 mg PO TID 10/23/16 [History Confirmed 05/25/18 Last Taken 05/16/181999] cholecalciferol (vitamin D3) 1,000 unit tablet 2,000 unit PO QDAY tab 10/23/16 [History Confirmed 05/25/18 Last Taken 05/16/18 0900] duloxetine 60 mg capsule,delayed release 60 mg PO QDAY 10/23/16 [History Co nfirmed 05/25/18 Last Taken 05/16/18 0900] hydrocodone 10 mg-acetaminophen 325 mg tablet 1 tab PO Q4H tab 10/23/16 [History Confirmed 05/25/18 Last Taken Unknown] sitagliptin 100 mg tablet 100 mg PO QDAY tab 10/23/16 [History Confirmed 05/25/18 Last Taken 05/24/18 21:00] zolpidem 10 mg tablet 10 mg PO HS 10/23/16 [History Confirmed 05/25/18 Last Taken 05/24/18 21:00] Fish Oil [place] 3-6-9 2 cap PO QD-BID 10/24/16 [History Confirmed 05/25/18 Last Taken 05/24/18 2100] multivitamin 1 each PO QDAY 10/24/16 [History Confirmed 05/25/18 Last Taken 05/16/18] Albuterol Sulfate Hfa 2 puff Q4 05/25/18 [History Confirmed 05/25/18 Last Taken 05/25/18 11:00] LORazepam [Ativan] 0.5 - 1 mg PO Q8HP PRN 05/25/18 [History Confirmed 05/25/18 Last Taken Unknown] benzonatate 100 mg capsule 100 mg PO TID 05/25/18 [History Confirmed 05/25/18 Last Taken 05/25/18 11:00] doxycycline hyclate 100 mg capsule 100 mg PO BID 05/25/18 [History Confirmed 05/25/18 Last Taken 05/25/18 11:00] glipizide ER 2.5 mg tablet, extended release 24 hr 2.5 mg PO QDAY #30 tab 05/25/18 [History Confirmed 05/25/18 Last Taken 05/16/18 0900] rosuvastatin 40 mg tablet 40 mg PO QDAY #30 tab 05/25/18 [History Confirmed 05/25/18 Last Taken 05/24/18 21:00] Medical - DS: Hosp Hospital course: Ms. Alcantar is a 58 year old F with a history of chronic kidney disease who had a syncopal episode at nephrology clinic today and was subsequently referred to the ER. Patient over the last 10 days has been experiencing profuse diarrhea along with weakness. She denies associated abdominal pain fever, mucus or blood. However over the last 1 week she has lost over 10 pounds. She feels extremely dehydrated. She also developed upper respiratory symptoms around 5 days ago for which she was evaluated at PCP office and was prescribed doxycycline for 10 days. She endorses to extreme fatigue, malaise and weakness along with nausea that has progressed to the point she is unable to function prompting her to follow-up with nephrology clinic where she experienced syncopal episode. Notably patient had a history of chronic kidney disease with a recent creatinine of over 5 however repeat creatinine today in the ER was over 7 with a BUN 89. Nephrology was consulted and patient will undergo hemodialysis after HD catheter placement in 24 hours. Hospitalist service was consulted for admission At the time of evaluation patient is accompanied with her daughter and . She endorses to history as above. She denies NSAID use, changes in medication. She denies sick contacts. 05/26-patient doing well. Creatinine down from 7.1-6.5. Hemodialysis catheter placement today at [facility]. Nephrology on board. No other concerns per nursing staff. No overnight events except for persistent nausea. 05/27- ongoing hemodialysis. Patient clinically improving. Doing well this morning. On bronchodilators. Discharge planning per nephrology. No overnight fever chills or telemetry events 05/28 Pt seen examined, no acute complaints, still has diarrhea, but one episode per day, has nausea, which seems to be persistent, vomiting last night. No cp, sob, or abdominal pain reported 05/29 Pt seen examiend, no acute issues, feeling much better today EGD done shows multiple duodenal ulcers ,7 per GI, largest 3 cms biopsy taken, not bleeding Pt stable for discharge, will d/c on po pantoprazole 40mg daily, In Summary A/P The patient admitted to the hospital for dehydration and acute kidney injury on chronic renal failure secondary to protracted diarrhea and nausea and vomiting. The patient's diarrhea resolved, patient was treated with IV hydration, however the patient's renal function remained subdued. Patient required to be initiated on hemodialysis. Patient underwent upper endoscopy for her nausea vomiting, she had a CT scan that showed some inflammation in the right upper quadrant related to possible duodenitis. The upper endoscopy showed multiple duodenal ulcers, not actively bleeding. Patient has been started on oral PPIs. The patient is stable for discharge, she did eat a meal before discharge. The patient is on rosuvastatin as well as Januvia for hyperlipidemia and diabetes. Given the fact that she has advanced renal failure at this time the dose of this medication needs to be adjusted, I am prescribing a new medication dose for Januvia 25 mg and rosuvastatin at 10 mg based on patient's renal function. Discharge diagnosis: Diarrhea/Nausea/Vomiting/ Renal failure - Time Spent with Patient Total time spent providing and/or coordinating discharge services: Greater than 30 minutes Medical - DS: Exam - Constitutional Vitals: Vital Signs Temp Pulse Pulse Resp BP BP BP 05/29/18 16:40 83 17 137/91 05/29/18 16:38 98.6 F 85 17 137/91 05/29/18 15:47 98.6 F 20 104/71 05/29/18 12:00 98.5 F 16 96/63 05/29/18 07:10 97.6 F 20 102/66 05/29/18 03:31 98.5 F 72 16 96/64 05/28/18 23:57 98.3 F 84 16 91/64 05/28/18 20:00 98.5 F 92 H 16 105/68 Pulse Ox 05/29/18 16:40 99 05/29/18 16:38 99 05/29/18 15:47 97 05/29/18 12:00 94 05/29/18 07:10 96 05/29/18 03:31 96 05/28/18 23:57 94 05/28/18 20:00 92 Intake and Output 05/29/18 05/29/18 05/29/18 05:59 13:59 21:59 Intake Total 600 1000 Balance 600 1000 Intake: IV 1000 Sodium Chloride 0.9% 1,000 ml @ 1000 75 mls/hr IV .[id number] SUNDAY Rx#: [id number] Oral 600 Other: Weight 161 lb Patient Weight 05/30/18 05:59 Weight 161 lb Additional comments: Constitutional; Afebrile, cooperative, alert, not in distress. Respiratory system: Air Entry equal on both sides, No crackles or wheezing, no rhonchi. CVS- Rate rhythm regular, S1,S2 heard, no gallop, no rub. Abdomen- Soft nontender abdomen, no organomegaly, no tenderness, no guarding or rigidity, [employer]- AOOx3, moving all extremities, no gross focal deficit noted. Medical - DS: Data Labs on day of discharge: Labs from last 24 hours 05/29/18 05/29/18 05/29/18 12:31 05:00 05:00 WBC 4.1 L RBC 3.49 L Hgb 11.1 L Hct 33.4 L MCV 95.8 MCH 31.7 MCHC 33.1 RDW 12.6 Plt Count 156 MPV 9.4 Total Counted 100 Seg Neutrophils % 49 Band Neutrophils % 1 Lymphocytes % 37 Monocytes % (Manual) 13 H Platelet Estimate Normal RBC Morphology Normal Sodium 141 Potassium 3.3 Chloride 102 Carbon Dioxide 26 Anion Gap 13.0 BUN 30 H Creatinine 4.5 H GFR Calculation 10 Glucose 116 H Uric Acid 3.8 Calcium 8.1 L Phosphorus 4.9 H Magnesium 2.0 Total Bilirubin 0.4 Direct Bilirubin < 0.2 GGT 12 AST 18 ALT 18 Alkaline Phosphatase 68 Lactate Dehydrogenase 245 Total Protein 5.9 Albumin 3.2 Globulin 2.7 Albumin/Globulin Ratio 1.2 Triglycerides 344 H Hep Bs Antigen Negative Hep Bs Antibody Positive A Medical - DS: A/P - Patient/Caregiver Discharge Instructions Activity: increase activity as tolerated Diet: Renal/Consistent Carbs Additional Instructions: Please keep your self well hydrated Follow hemodialysis schedule as per your back tacker recommendations You have been diagnosed with Duodenal ulcers, please start taking pantoprazole 40mg once daily, take this medication is to be taken 30 mins before a meal. if you are unable to get this medication, you can use over the counter prilosec. I have cut down on the dose of januvia to 25mg and rosuvastatin to 10mg based on your renal function. Go to the ER if worsening symptoms, chest pain, shortness of breath or any other acute concern. Follow up with your PCP in 1 -2 weeks Follow up with GI/ Dr Cao in 3 months for repeat Upper endoscopy. - Follow up Plan Follow up with: Merry Ramirez MD [Physician] - María Chen ARNP [Primary Care Provider] - Florentin Herron MD [Physician] - Disposition: Home, Self-Care Prognosis: Fair Rehab Potential: Fair I certify that the patient requires SNF services: No Overall status at discharge: patient is progressing back to baseline Medical - DS: Qual - VTE Deep Vein Thrombosis/Pulmonary Embolism Present on Admission: No
--- NOTE | 2018-06-01 08:26 | Operative Note ---
DATE OF OPERATION: 05/29/2018 PREPROCEDURE DIAGNOSES: Gastritis, gastric ulcer. POSTPROCEDURE DIAGNOSES: 1. Duodenal ulcers x7 plus or minus ranging from 3 mm to 3 cm. 2. Duodenitis. 3. Gastritis. 4. Reflux esophagitis, LA grade B. PROCEDURE: Esophagogastroduodenoscopy with biopsy. INSTRUMENT USED: Olympus MAVERICK [id number] endoscope. SPECIMENS OBTAINED: Biopsies from antrum for histopathology and rapid urease testing-CLOtest. [place] TEST Results negative INDICATIONS FOR PROCEDURE: The patient is a 58-year-old lady whose primary care provider is María Chen NP. The patient was admitted by Dr. Echevarria. The patient also sees Dr. Ramirez. I believe she does have diabetes type 2 and I believe she is on dialysis. The patient had a syncopal episode in Dr. Ramirez's office. She states she has had some problems since about 05/16 of nausea, vomiting, diarrhea and dark stool. She had a CAT scan that raised concern regarding pancreatitis; however, enzymes did not support the diagnosis of acute pancreatitis. Perhaps she had some pancreatitis and has improved. Endoscopy is indicated to evaluate for other pathology that may explain the nausea, vomiting, diarrhea and probably melena and abdominal pain. INFORMED CONSENT: Time of informed consent was about 16:20. The procedure was reviewed with the patient. The patient had no further questions and accepts the risks and benefits thereof. One of the risks that were discussed included . Additional risks that were also discussed included bleeding, reaction to medication, possible perforation and possible need for surgery. IV MEDICATIONS USED: Versed 2 mg and propofol 250. FINDINGS: ESOPHAGUS: Proximal and mid esophagus normal. Distal esophagus: There was a mucosal break and some linear erythema and scarring extending up about 5 to 7 mm. This is consistent with LA grade B esophagitis. EG junction was around 36. There was a hiatal hernia at around 39 cm. STOMACH: Cardia, fundus and body normal. Antrum: In the prepyloric area, there were a few areas of erythema and edema noted. Biopsies were taken for histopathology and CLOtest. CLOtest RESULTS: PYLORUS: Normal. DUODENUM: There were several areas of erythema both in the bulb and descending limb of the duodenum. There were about 7 ulcers plus or minus. These ranged in 3 or 4 mm in size up to about 3 cm in size. No active bleeding was noted. There is little risk of significant bleeding. The distal descending limb of the duodenum had a little less erythema and edema noted. RECOMMENDATIONS: Continue PPI medications. I see the patient is on omeprazole. This is reasonable. I believe this is a new medication. Alternatively, one could use Protonix. I would like her to be on a PPI medication at least for 3 months. In about 3 months I would recommend a follow-up EGD to evaluate status of healing. She probably should follow antireflux measures. She denied use of nonsteroidal anti-inflammatory drugs at this time except for aspirin that I believe is used to decrease the risk of heart attack or stroke. If for some reason she does find that she is using nonsteroidal anti-inflammatory drugs these should be discontinued. If there is evidence of Helicobacter, appropriate treatment will be recommended. It is possible that she will probably benefit from chronic acid suppression, given the severity of the ulcers. Unless we find a cause for the ulcers it can be discontinued. SEDATION TIME: 16:25 to 16:45. Please refer to the preprocedure nurse's notes, procedure flowsheet, procedure record, and post-procedure assessment for details of the sedation including the pre-, intra-, and post-service work. CRD:kh Job ID: [id number] Doc ID: [id number] Florentin Haas NP MTDD
--- NOTE | 2018-06-01 12:02 | Surgical Pathology Report ---
HISTOLOGY SPECIMEN MICROSCOPIC DIAGNOSIS STOMACH, ANTRUM, BIOPSY: -- CHRONIC GASTRITIS. -- NO HELICOBACTER SPECIES IDENTIFIED ON ALCIAN YELLOW STAIN (ADEQUATE TECHNICAL CONTROL). (EBD:rome) CLINICAL HISTORY Nausea/emesis; diarrhea - dark; fell May 16; CT - pancreatitis (?), not supported by enzymes. PROCEDURAL IMPRESSION Gastritis; GERD LA-B; duodenal ulcers; duodenitis. GROSS DESCRIPTION Received in formalin labeled antrum, are four carlisle-brown soft tissue fragments ranging in size from 0.3 to 0.8 cm. Entirely submitted in one cassette. (EBD:adj) Electronically Signed by: Kate Dasilva M.D.
== END 2018-05-29 18:51 | disposition home or self-care (01) | DRG 673 ==
LOC: ED 15:07 → ICU 19:03 → MEDSUR 05-28 18:48
PROVIDERS: ADMIT Internal Medicine; ATTEND Internal Medicine